=== PATIENT | female | born 1940 ===

== ENCOUNTER → 2021-03-28 09:20 | Outpatient (BNVA) | payer OTHER, SELFPAY | PROVIDERS: Visit Provider Nurse Practitioner Family | DX: R25.1 Tremor, unspecified (principal); F09 Unspecified mental disorder due to known physiological condition; Z55.0 Illiteracy and low-level literacy | CPT/HCPCS: 99212 ==

== ENCOUNTER → 2021-05-30 08:40 | Outpatient (BNVA) | payer OTHER, SELFPAY | PROVIDERS: PCP Internal Medicine; Visit Provider Nurse Practitioner Family | DX: R25.1 Tremor, unspecified (principal); F09 Unspecified mental disorder due to known physiological condition; H54.40 Blindness, one eye, unspecified eye | CPT/HCPCS: 99212 ==

== ENCOUNTER → 2022-03-28 09:26 | Outpatient (BNVA) | payer OTHER, SELFPAY | PROVIDERS: PCP Internal Medicine; Visit Provider Nurse Practitioner Family | DX: R25.1 Tremor, unspecified (principal); F41.9 Anxiety disorder, unspecified; G47.9 Sleep disorder, unspecified | CPT/HCPCS: 99212 ==

== ENCOUNTER → 2022-06-25 09:30 | Outpatient (BNVA) | payer OTHER, SELFPAY | PROVIDERS: PCP Internal Medicine; Visit Provider Nurse Practitioner Family | DX: G47.9 Sleep disorder, unspecified (principal); R25.1 Tremor, unspecified; F09 Unspecified mental disorder due to known physiological condition | CPT/HCPCS: 99212 ==

== ENCOUNTER 2022-12-25 09:17 | Outpatient (AMB) | payer OTHER, SELFPAY ==
--- NOTE | 2022-12-25 09:18 | MHC.OFFVIS ---
Intake Vital Signs 12/25/22 09:19 Height 4 ft 8 in Weight 89 lb 2 oz BMI 20.0 BP 122/74 Blood Pressure Location Rt brachial Position Sitting Intake Visit Reasons: 6m follow up-LVM Intake Note: Patient presents for 6 month follow up. Patient states no issues or concerns today. Allergies No Known Allergies Allergy (Verified 12/25/22 09:20) HPI HPI Comments History of Present Illness Details 82-yr-old female presents for f/u visit. Pt denies any significant interval medical changes. Pt and dtr report she is doing better overall. She is sleeping better on Mirtazapine and Trazodone. She is eating a bit better, but has had a small weight loss since the last visit- 5 lbs over 6 months. Tremor is stable PFSH Surgical History H/O colonoscopy History of tubal ligation Family History Father CVA (cerebral vascular accident) Myocardial infarction Mother Glaucoma Sister High blood pressure Dementia Myocardial infarction Brother DJD (degenerative joint disease) Social History Alcohol intake: never Patient Tobacco Use Status: Never used Tobacco Review of Systems Const All systems reviewed & are unremarkable except as noted in HPI and below Physical Exam Vital Signs: Last Vital Signs BP 122/74 12/25/22 09:19 BMI result Body Mass Index 20.0 Const General: cooperative and no acute distress HEENT Head: Yes normocephalic Resp Effort & Inspection: normal respiratory effort and able to speak in complete sentences Neuro Other: A&O, responding appropriately. General: gait normal Cognition (Neuro): normal cognition Motor exam (neuro): 5/5 motor strength present throughout Psych Appearance: grossly normal Mental Status: mental status grossly normal Speech and movement: Clear speech present Affect: normal affect Attitude: cooperative Thought process: Normal thought process present Assessment & Plan Assessment & Plan (1) Sleep difficulties: Code(s): G47.9 - Sleep disorder, unspecified (2) Tremor: Comment: asymmetric BUE tremor. ? central/CV process, ? early PD. Code(s): R25.1 - Tremor, unspecified Plan Continue Mirtazapine 7.5mg qhs May continue Trazodone 50mg qhs. Continue to optimize physical activity and cognitively stimulating activities. Monitor tremor. Monitor cognition- do MMSE in f/u Try to increase caloric intake- add some high calorie foods. f/u in 6 months or sooner prn Coding Level of Care Code Est Pt Level 4 (23509) Diagnoses Sleep difficulties G47.9 Tremor R25.1
[2022-12-25 09:19] VITALS: BP 122/74
== END 2022-12-25 09:57 | disposition home or self-care (01) ==
PROVIDERS: Visit Provider Nurse Practitioner Family
DX: G47.9 Sleep disorder, unspecified (principal); R25.1 Tremor, unspecified
CPT/HCPCS: 99214

== ENCOUNTER → 2022-12-25 09:17 | Outpatient (BNVA) | payer OTHER, SELFPAY | PROVIDERS: Visit Provider Nurse Practitioner Family | DX: G47.9 Sleep disorder, unspecified (principal); R25.1 Tremor, unspecified | CPT/HCPCS: 99212 ==

== ENCOUNTER 2023-06-24 08:35 | Outpatient (AMB) | payer OTHER, SELFPAY ==
--- NOTE | 2023-06-24 08:42 | MHC.OFFVIS ---
Vital Signs 06/24/23 08:50 Height 4 ft 8 in Weight 90 lb BMI 20.2 BP 122/70 Blood Pressure Location Lt brachial Position Sitting Pulse 54 Pulse Source Pulse Oximeter Pulse Oximetry (%) 100 Oxygen Delivery Method Room Air Intake Visit Reasons: 6 mo f/u-LVM Intake Note: Patient presents for 6 months f/u. Allergies No Known Allergies Allergy (Verified 06/24/23 08:46) Medication List - Last Reconciled 06/24/23 by ROSALINDA Nevarez amlodipine (Norvasc) 2.5 mg PO DAILY aspirin (Adult Low Dose Aspirin) 81 mg PO DAILY atorvastatin 20 mg PO DAILY denosumab (Prolia) 60 mg subcut [id number] dorzolamide 2% 1 drp ophthalmic (eye) TID ferrous sulfate 325 mg PO DAILY lisinopril 20 mg PO DAILY metformin 500 mg PO DAILY mirtazapine 7.5 mg PO BEDTIME 30 days omeprazole 20 mg PO DAILY tramadol 50 mg PO DAILY trazodone 50 mg PO BEDTIME warfarin 5 mg PO DAILY HPI Comments Details: 82-yr-old female presents for f/u visit, accompanied by her dtr, Dora. Pt denies any significant interval medical changes. Pt states she is eating better. Pt is sleeping well. Dtr is helping more. Pt does cook simple foods. Dtr has asked her to not cook more complicated foods, such as frying. As she was burning foods. Pt is repeating herself. Pt is not wandering. Pt's dtr notes that pt does not have the same filter she used to. Can become frustrated. Can be anxious at times. Dtr tries strategies to relax her or to take her out. PFSH Surgical History H/O colonoscopy History of tubal ligation Family History Father CVA (cerebral vascular accident) Myocardial infarction Mother Glaucoma Sister High blood pressure Dementia Myocardial infarction Brother DJD (degenerative joint disease) Social History Alcohol intake: never Patient Tobacco Use Status: Never used Tobacco Physical Exam Vital Signs: Last Vital Signs Pulse 54 06/24/23 08:50 BP 122/70 04/23/24 08:50 Pulse Ox 100 06/24/23 08:50 Oxygen Delivery Method Room Air 06/24/23 08:50 BMI result Body Mass Index 20.2 Const General: cooperative and no acute distress Resp Effort & Inspection: normal respiratory effort and able to speak in complete sentences Neuro Other: A&O Pleasant affect Modified MMSE d/t Malian speaking and unable to read/write or do math: Friday, , June,, [facility], (location)[facility], 1st. Unable to state that we are in a clinic. [employer] Libro- 3/3 Items- able to identify 2 items correctly. [employer] Libro- 3/3 3- step command- intact. General: moves all extremities Cranial nerves: Yes CN's II-XII intact bilaterally Cognition (Neuro): normal cognition Gait exam (Neuro): Assisted gait required (cane) Psych Appearance: grossly normal Mental Status: mental status grossly normal Speech and movement: Normal speech and movement present Affect: normal affect Attitude: cooperative Assessment & Plan Assessment & Plan (1) Cognitive dysfunction: Comment: STM difficulties and repeating herself. sister passed from AD around 80 yo. Code(s): F09 - Unspecified mental disorder due to known physiological condition Category: Medical (2) Literacy level of illiterate: Comment: Malian speaking- never learned how to read or write in Malian. Code(s): Z55.0 - Illiteracy and low-level literacy Category: Social Hx (3) Tremor: Comment: asymmetric BUE tremor. ? central/CV process, ? early PD. Code(s): R25.1 - Tremor, unspecified Category: Medical (4) Sleep difficulties: Code(s): G47.9 - Sleep disorder, unspecified Category: Medical Plan Start Memantine ER 7mg qd for neuroprotection. Continue Mirtazapine 7.5mg qhs May continue Trazodone 50mg qhs. Continue optimizing diet intake. Continue to optimize physical activity and cognitively stimulating activities. Monitor tremor. f/u in 6 months or sooner prn Medications: New memantine 7 mg PO DAILY 30 ea 6RF 30 days Coding Level of Care Code Est Pt Level 4 (63963) Diagnoses Cognitive dysfunction F09 Literacy level of illiterate Z55.0 Tremor R25.1 Sleep difficulties G47.9
[2023-06-24 08:50] VITALS: BP 122/70; PULSE 54; O2SAT 100; BMI 20.2
== END 2023-06-24 09:24 | disposition home or self-care (01) ==
PROVIDERS: PCP Internal Medicine; Visit Provider Nurse Practitioner Family
DX: R41.89 Other symptoms and signs involving cognitive functions and awareness (principal); Z55.0 Illiteracy and low-level literacy; R25.1 Tremor, unspecified; G47.9 Sleep disorder, unspecified
CPT/HCPCS: 99214

== ENCOUNTER → 2023-06-24 08:35 | Outpatient (BNVA) | payer OTHER, SELFPAY | PROVIDERS: PCP Internal Medicine; Visit Provider Nurse Practitioner Family | DX: F09 Unspecified mental disorder due to known physiological condition (principal); R25.1 Tremor, unspecified; G47.9 Sleep disorder, unspecified; Z55.0 Illiteracy and low-level literacy | CPT/HCPCS: 99212 ==

== ENCOUNTER 2023-12-29 08:59 | Outpatient (AMB) | payer OTHER, SELFPAY ==
--- NOTE | 2023-12-29 09:08 | A.OFFVIS_ITS ---
Vital Signs 12/29/23 09:08 Height 4 ft 8 in Intake Visit Reasons: 6 month F/U Allergies No Known Allergies Allergy (Verified 12/29/23 09:10) Medication List - Last Reconciled 01/05/24 by ROSALINDA Nevarez amlodipine (Norvasc) 2.5 mg PO DAILY aspirin (Adult Low Dose Aspirin) 81 mg PO DAILY atorvastatin 20 mg PO DAILY denosumab (Prolia) 60 mg subcut [id number] dorzolamide 2% 1 drp ophthalmic (eye) TID ferrous sulfate 325 mg PO DAILY lisinopril 20 mg PO DAILY memantine 7 mg PO DAILY 30 days metformin 500 mg PO DAILY mirtazapine 7.5 mg PO BEDTIME 30 days omeprazole 20 mg PO DAILY tramadol 50 mg PO DAILY trazodone 50 mg PO BEDTIME warfarin 5 mg PO DAILY HPI Comments Details: 82-yr-old female presents for f/u visit, accompanied by her dtr, Dora. Pt denies any significant interval medical changes. Dtr states pt's cognition is stable. Dtr continues to assist pt. Pt states she is eating ok- always has had a small appetite. Pt is sleeping well. Pt does repeat herself. Pt is not wandering. Can be anxious or frustrated at times, and Dtr is able to relax her or to take her out. [facility] Surgical History H/O colonoscopy History of tubal ligation Family History Father CVA (cerebral vascular accident) Myocardial infarction Mother Glaucoma Sister High blood pressure Dementia Myocardial infarction Brother DJD (degenerative joint disease) Social History Alcohol intake: never Patient Tobacco Use Status: Never used Tobacco Physical Exam Const General: cooperative and no acute distress Resp Effort & Inspection: normal respiratory effort and able to speak in complete sentences Neuro Other: A&O w/ STM lapses. Pleasant affect General: moves all extremities Cranial nerves: Yes CN's II-XII intact bilaterally Cognition (Neuro): normal cognition Gait exam (Neuro): Assisted gait required (cane) Psych Appearance: grossly normal Mental Status: mental status grossly normal Speech and movement: Normal speech and movement present Affect: normal affect Attitude: cooperative Assessment & Plan Assessment & Plan (1) Cognitive dysfunction: Comment: STM difficulties and repeating herself. sister passed from AD around 80 yo. Code(s): F09 - Unspecified mental disorder due to known physiological condition Category: Medical (2) Literacy level of illiterate: Comment: Dominican speaking- never learned how to read or write in Dominican. Code(s): Z55.0 - Illiteracy and low-level literacy Category: Social Hx (3) Tremor: Comment: asymmetric BUE tremor. ? central/CV process, ? early PD. Code(s): R25.1 - Tremor, unspecified Category: Medical (4) Sleep difficulties: Code(s): G47.9 - Sleep disorder, unspecified Category: Medical Plan ContinueMemantine ER 7mg qd for neuroprotection. Continue Mirtazapine 7.5mg qhs May continue Trazodone 50mg qhs. Continue optimizing diet intake. Continue to optimize physical activity and cognitively stimulating activities. Monitor tremor. f/u in 6 months or sooner prn Coding Level of Care Code Est Pt Level 4 (32673) Diagnoses Cognitive dysfunction F09 Literacy level of illiterate Z55.0 Tremor R25.1 Sleep difficulties G47.9
== END 2023-12-29 11:18 | disposition home or self-care (01) ==
PROVIDERS: PCP Internal Medicine; Visit Provider Nurse Practitioner Family
DX: R41.89 Other symptoms and signs involving cognitive functions and awareness (principal); R25.1 Tremor, unspecified; G47.9 Sleep disorder, unspecified; Z55.0 Illiteracy and low-level literacy
CPT/HCPCS: 99214

== ENCOUNTER → 2023-12-29 08:59 | Outpatient (BNVA) | payer OTHER, SELFPAY | PROVIDERS: PCP Internal Medicine; Visit Provider Nurse Practitioner Family | DX: F09 Unspecified mental disorder due to known physiological condition (principal); R41.89 Other symptoms and signs involving cognitive functions and awareness; R25.1 Tremor, unspecified; G47.9 Sleep disorder, unspecified; Z55.0 Illiteracy and low-level literacy | CPT/HCPCS: 99212 ==

== ENCOUNTER 2024-06-22 08:46 | Outpatient (AMB) | payer OTHER, SELFPAY ==
[2024-06-22 08:51] VITALS: PULSE 61; O2SAT 100; BMI 18.8
--- NOTE | 2024-06-22 08:51 | A.OFFVIS_ITS ---
Vital Signs 06/22/24 08:51 Height 4 ft 8 in Weight 84 lb BMI 18.8 Pulse 61 Pulse Source Pulse Oximeter Pulse Oximetry (%) 100 Oxygen Delivery Method Room Air Intake Visit Reasons: Follow up Intake Note: Patient presents follow up Cognitive dysfunction/tremors. Irrigation Engineer Required: Yes Irrigation Engineer Services: Irrigation Engineer Offered & Declined Irrigation Engineer Name: Daughter Accompanied by: Daughter Allergies No Known Allergies Allergy (Verified 06/22/24 08:54) Medication List - Last Reconciled 06/22/24 by ROSALINDA Nevarez amlodipine (Norvasc) 2.5 mg PO DAILY aspirin (Adult Low Dose Aspirin) 81 mg PO DAILY atorvastatin 20 mg PO DAILY denosumab (Prolia) 60 mg subcut [id number] dorzolamide 2% 1 drp ophthalmic (eye) TID ferrous sulfate 325 mg PO DAILY lisinopril 20 mg PO DAILY memantine 7 mg PO DAILY 30 days metformin 500 mg PO DAILY mirtazapine 7.5 mg PO BEDTIME 30 days omeprazole 20 mg PO DAILY tramadol 50 mg PO DAILY trazodone 50 mg PO BEDTIME warfarin 5 mg PO DAILY HPI Comments Details: 83-yr-old female presents for f/u visit, accompanied by her dtr, Dora. Pt denies any significant interval medical changes, other than a recent cough/cold s/s. June 2024, BMP- WNL (dtr shared results via portal) Dtr and patient states pt's cognition is worsening some. However, if she forgets something, she is prone to recall it afterwards. Pt continues to live at home with her , however he spends most of his day in his office- so does not help much. Dtr continues to assist pt. Now dtr needs to cook for pateint as she was forgetting steps/ingredients. Pt states she is eating ok, dtr feels she is eating better since starting mirtazepine- though always has had a small appetite. Pt is sleeping well. Pt does repeat herself. Pt does not wander or engage in unsafe behaviors. Can be angry at times with her - but in the past was too patient with her . Dtr states pt does not recall things happening recently w/ - but becomes more upset regarding historical actions/events. Hand tremor is better since dtr gave pt small balls to exercise her hands. These also help her when she is anxious. [facility] Surgical History H/O colonoscopy History of tubal ligation Family History Father CVA (cerebral vascular accident) Myocardial infarction Mother Glaucoma Sister High blood pressure Dementia Myocardial infarction Brother DJD (degenerative joint disease) Social History Alcohol intake: never Patient Tobacco Use Status: Never used Tobacco Physical Exam Vital Signs: Last Vital Signs Pulse 61 06/22/24 08:51 Pulse Ox 100 06/22/24 08:51 Oxygen Delivery Method Room Air 06/22/24 08:51 BMI result Body Mass Index 18.8 Const General: cooperative and no acute distress Resp Effort & Inspection: normal respiratory effort and able to speak in complete sentences Neuro Other: A&O w/ STM lapses. Responding appropriately. Pleasant affect No visible UE tremor. General: moves all extremities Cranial nerves: Yes CN's II-XII intact bilaterally Cognition (Neuro): normal cognition Gait exam (Neuro): Assisted gait required (cane) Psych Appearance: grossly normal Speech and movement: Clear speech present Affect: normal affect Attitude: cooperative Assessment & Plan Assessment & Plan (1) Cognitive dysfunction: Comment: STM difficulties and repeating herself. sister passed from AD around 80 yo. Code(s): F09 - Unspecified mental disorder due to known physiological condition Category: Medical (2) Literacy level of illiterate: Comment: Swedish speaking- never learned how to read or write in Swedish. Code(s): Z55.0 - Illiteracy and low-level literacy Category: Social Hx (3) Tremor: Comment: asymmetric BUE tremor. ? central/CV process, ? early PD. Code(s): R25.1 - Tremor, unspecified Category: Medical (4) Sleep difficulties: Code(s): G47.9 - Sleep disorder, unspecified Category: Medical Plan Increase Memantine ER from 7mg qd to 14mg qd x's 30 days, if well-tolertaed will increase to 21mg qd x's 30 days and then to 28mg qd- for neuroprotection. Reviewed possible s/e's- dtr to call w/ any untoward effects. Continue Mirtazapine 7.5mg qhs May continue Trazodone 50mg qhs. Continue optimizing diet intake. Continue to optimize physical activity and cognitively stimulating activities. Encouraged to try doing puzzles. Monitor tremor. Continue firm and soft ball hand exercises, as they have been helpful. f/u in 6 months or sooner prn Medications: New memantine then stop and increase to 21mg qd 14 mg PO DAILY 30 days 30 ea 0RF Refilled mirtazapine 7.5 mg PO BEDTIME 30 days 30 tabs 6RF Discontinued memantine Discontinued Reason: Doctor's Order 7 mg PO DAILY 30 days 30 ea 6RF Coding Level of Care Code Est Pt Level 4 (64244) Diagnoses Cognitive dysfunction F09 Literacy level of illiterate Z55.0 Tremor R25.1 Sleep difficulties G47.9
--- OUTSIDE RECORDS SUMMARY | 2024-06-22 09:09 | XMS_ITS | Clinical Summary ---
Author Organization [facility] [address] [place] [address] [place] [phone] Phone Care Team Providers Care Electrical Design Technician Name Role Phone Alessandro Marin MD Primary Care Provider [phone] Allergies No known active allergies Medications latanoprost (XALATAN) 0.005 % ophthalmic solution Active memantine (NAMENDA XR) 7 mg extended release capsule Take 1 capsule (7 mg total) by mouth 1 (one) time each day. For 30 days. Active timolol (TIMOPTIC) 0.5 % ophthalmic solution Administer 1 drop into both eyes 2 (two) times a day. Active traZODone (DESYREL) 50 mg tablet TAKE 1 TABLET NIGHTLY NEEDED FOR SLEEP Active denosumab (Prolia) 60 mg/mL syringe syringe Inject 1 mL (60 mg total) under the skin every 6 (six) months. Active prednisoLONE acetate (PRED FORTE) 1 % ophthalmic suspension 1 drop 3 (three) times a day. Active FREESTYLE LANCETS MISC Use for finger stick once a day. Active dorzolamide HCl (DORZOLAMIDE OPHT) apply to the eye. Active mirtazapine (REMERON) 7.5 mg tablet Take 1 Tablet by mouth at bedtime. Active metFORMIN (GLUCOPHAGE) 500 mg tabletIndications :Type 2 diabetes mellitus with diabetic nephropathy (CMS/HCC V24, CMS/HCC V28) TAKE 1 TABLET BY MOUTH EVERY DAY 90 tablet 1 025 Active denosumab (PROLIA) 60 mg/mL syringe syringe Inject 1 mL (60 mg total) under the skin 1 (one) time for 1 dose. 1 mL 025 Active warfarin (COUMADIN) 5 mg tablet TAKE 1/2 -1 TABS BY MOUTH DAILY DIRECTED AT SAME TIME PER DAY. DONT CHANGE DIETARY HABITS. MAY CAUSE HEAVY BLEEDING 90 tablet 1 025 Active lisinopriL (PRINIVIL,ZESTRIL ) 5 mg tablet Take 1 tablet (5 mg total) by mouth 1 (one) time each day. 90 each 1 025 2024 Active traMADoL (ULTRAM) 50 mg tablet Take 1 tablet by mouth daily as needed for pain 28 tablet 025 Active omeprazole (PriLOSEC) [address] capsule TAKE 1 CAPSULE BY MOUTH EVERY DAY 90 capsule 1 025 Active ferrous sulfate 325 mg (65 mg elemental iron) tabletIndications :Essential (primary) hypertension TAKE 1 TABLET BY MOUTH EVERY DAY 90 tablet 1 025 Active atorvastatin (LIPITOR) 20 mg tabletIndications :Mixed hyperlipidemia TAKE 1 TABLET BY MOUTH EVERY DAY 90 tablet 1 025 Active ferrous sulfate 325 mg (65 mg elemental iron) tablet Take 1 tablet (325 mg total) by mouth 1 (one) time each day. 024 2024 Discontinued omeprazole (PriLOSEC) [address] capsule Take 1 capsule (20 mg total) by mouth 1 (one) time each day. 024 2024 Discontinued atorvastatin (LIPITOR) 20 mg tablet Take 1 tablet (20 mg total) by mouth 1 (one) time each day. 018 2024 Discontinued traMADoL (ULTRAM) 50 mg tablet Take 1 tablet by mouth daily as needed for pain 20 tablet 025 2024 Discontinued(R eorder) clotrimazole (LOTRIMIN) 1 % cream Apply topically 2 (two) times a day. To nails 30 g 3 025 2024 Hospital, Clinic, or Other Facility Administered Medication Ordered Dose Route Frequency Start Date End Date Status denosumab (PROLIA) syringe 60 mgIndications:Age-related osteoporosis without current pathological fracture 60 mg subQ Once 06/08/2024 06/18/2024 Ended Active Problems Problem Noted Date Diagnosed Date Recurrent deep vein thrombosis ([facility] V24, [facility] V28) 02/06/2024 medical terminologist (current) use of anticoagulants 2023 COVID 02/08/2022 Adhesive capsulitis of right shoulder 01/29/2021 Pes anserinus bursitis of both knees 01/29/2021 Tendinitis of right rotator cuff 04/20/2020 Chronic kidney disease due to hypertension 07/01 Gastroesophageal reflux disease 05/22/2019 Cyst of right ovary 12/29/2017 Overview (12/29/2023): Subentimeter and unchanged from 2013. MRI and repeat US in 12/2018 unchanged Last Assessment & Plan: Reviewed findings and pt reassured. Will schedule repeat US in one year. Vaginal erosion 12/29/2017 Overview (12/29/2023): Last Assessment & Plan: I reviewed findings with Livia and her . I explained that her vaginal erosion could be related to friction on her clothing with prolapse when she stands, but on exam while standing this was not the case. I am somewhat suspicious for a precancerous or cancerous lesion given that this lesion was present with pessary in place, which is why it was initially removed, but did not resolve with 2 weeks with pessary out, followed by two weeks with pessary out and nightly estrogen use. I recommended that we perform colposcopy and vaginoscopy with vaginal and cervical biopsies, as well as ECC to ensure not originating within the cervix. I explained we cannot replace the pessary until we get this resolved. I did discuss that if the biopsy is negative, it may be best to consider colpocleisis as she is not planning on being sexually active any longer and if the pessary is the cause of her erosion, this is no longer an option. I explained that this would not be at my discretion given I do not perform this procedure, but I would start a referral to Dr. Solitario to see if he thinks this is warranted and would be willing to do so with her comorbidities. I explained a hysterectomy would be a much more involved surgery with higher risks for her based on her medical history. They are willing to wait to hear what Dr. Solitario has to say. In the meantime, they consented to vulvoscopy/colposcopy/biopsies today. See procedure note below. Following the procedure, she will return to daily use of vaginal estrogen to aid with healing of vaginal mucosa and erosion, if that is what it turns out to be. I am aware that she has a history of recurrent DVT, but given very low if any clinically significant systemic absorption of topical vaginal estrogen and the fact livan patient is on Coumadin, this is extremely unlikely to contribute to recurrence, but could significantly benefit her in terms of healing to prepare her for whatever intervention is next, either replacement of pessary vs surgical management. She and her understood and agreed. I spoke with both of them in Estonian and he spoke with me in Armenian as well and clearly interpretted to her. Pelvic pain 11/13/2017 Overview (01/22/2024): Last Assessment & Plan: Will order pelvic US given prolapse and pain to ensure no Projects Manager pathology. None noted today. She also agrees to follow up with PCP. Hyperlipidemia 08/27/2016 Recurrent deep vein thrombos is (DVT) ([facility] V24, [facility] V28) 03/14/2016 Microalbuminuria 12/13/2015 Illiteracy 08/12/2013 Anxiety 04/14/2013 Cystocele with uterine descensus 11/12/2012 Overview (12/29/2023): Last Assessment & Plan: Recommended she not have replacement of pessary at this time due to vaginal abrasions and difficulty keeping in place. I recommended she return in 2 weeks to ensure mucosa is healing. If not, could try topical estrogen. If so, can refit for pessary, perhaps different kind. Uterine prolapse 11/12/2012 Anemia 07/29/2012 Back pain 07/29/2012 Diabetes mellitus with renal manifestations, controlled ([facility] V24, [facility] V28) 07/29/2012 Osteoarthritis 07/29/2012 Overview (12/29/2023): Bilateral knees, right AC joint Followed by Dr. Rodriguez at [facility] CKD (chronic kidney disease) stage 3, GFR 30-59 ml/min ([facility] V24, [facility] V28) 07/29/2012 Glaucoma 06/17/2012 Overview (12/29/2023): The patient follow with outside eye doctor HTN (hypertension) 06/17/2012 Osteoporosis 06/17/2012 Encounters Date Type Department Care Team Description 06/18/2024 12:00 PM EDT Clinical Support Endocrinology - [address] [phone] 06/07/2024 Telephone Endocrinology - [address] [phone] Naya Sigala PA 05/26/2024 10:00 AM EDT Anticoagulation - Warfarin Visit Coumadin Clinic - [address] [phone] Recurrent deep vein thrombosis ([facility] V24, [facility] V28) (Primary Dx); residential (current) use of anticoagulants 05/12/2024 9:00 AM EDT Consult Orthopedic Surgery - [address] [phone] Hiren Michel DPM Dermatophytosis of nail (Primary Dx); Controlled type 2 diabetes mellitus with microalbuminuria, without long-term current use of insulin ([facility] V24, [facility] V28); Pain in toe of right foot; Pain in toe of left foot; Corns and callosities; Hammer toe of left foot; Acquired hammer toe of right foot; Type II diabetes mellitus with peripheral circulatory disorder ([facility] V24, [facility] V28); Diabetic mononeuropathy simplex ([facility] V24, [facility] V28); Metatarsalgia of both feet 05/06/2024 9:30 AM EST Office Visit Internal Medicine - [address] [phone] Anthony Andrea PA Primary hypertension (Primary Dx) 04/28/2024 2:10 PM EST Anticoagulation - Warfarin Visit Coumadin [address] [phone] Recurrent deep vein thrombosis (CMS/HCC V24, CMS/HCC V28) (Primary Dx); residential (current) use of anticoagulants 04/07/2024 8:10 AM EST Anticoagulation - Warfarin Visit [address] [phone] Recurrent deep vein thrombosis (CMS/HCC V24, CMS/HCC V28) (Primary Dx); residential (current) use of anticoagulants 03/24/2024 8:30 AM EST [facility] [address] [phone] Recurrent deep vein thrombosis (CMS/HCC V24, CMS/HCC V28) (Primary Dx); medical terminologist (current) use of anticoagulants from Last 3 Months Immunizations Name Administration Dates Next Due Influenza trivalent, 0.5mL ( Fluad) 65yo and older 11/21/2022,01/10/2021,12/03/2019,01/27,11/19/2017,12/05/2016,12/13/2015 Influenza trivalent, 0.5mL, preservative free (Fluarix; FluLaval; Fluzone) ages 6mo and older (Afluria) 3 years and older 12/14/2013,01/08/2013 Influenza, Unspecified 01/11/2022 Pneumococcal conjugate 13 va lent (Prevnar 13, PCV13) 2mo and older 03/14/2016 Pneumococcal polysaccharide 23 valent (Pneumovax 23) 2yo and older 04/15/2013 Pneumococcal, Unspecified 04/15/2013 Td Tetanus diptheria (Tdvax) 7yo and older 04/14/2013 Tdap Tetanus diptheria acell ular pertussis (Boostrix; Adacel) 7yo and older 03/18/2024 Zoster Live 03/07/2011 Surgical History Surgery Date Site/Laterality Comments TUBAL LIGATION PROCEDURE: HISTORICAL TUBAL LIGATION OTHER SURGICAL HISTORY PROCEDURE: HISTORICAL BENIGN LESION (REMOVAL OF); COMMENT: lipoma of the L breast ESOPHAGOGASTRODUODENOSCOPY 01/18/2013 PROCEDURE: DE EGD TRANSORAL BIOPSY SINGLE/MULTIPLE; COMMENT: erosive antral gastritis, bx to r/o H.pylori - mild rxtive gastritis,neg H.pylori COLONOSCOPY 01/18/2013 PROCEDURE: DE COLONOSCOPY STOMA DX INCLUDING COLLJ SPEC SPX; COMMENT: normal w/R sided tics BREAST BIOPSY 1980s Left PROCEDURE: BX BREAST; PERC NEEDLE CORE W/IMAG GUID; COMMENT: b9 OTHER SURGICAL HISTORY Bilateral PROCEDURE: INCISION OF EYE FOR GLAUCOMA; COMMENT: Lost vision in the right eye Medical History Medical History Date Comments Uterine prolapse 11/12/2012 DX:Uterine prol apse Osteoporosis 06/17/2012 DX:Osteoporosis Osteoarthritis 07/29/2012 DX:Osteoarthriti s Illiteracy 08/12/2013 DX:Illiteracy HTN (hypertension) 06/17/2012 DX:HTN (hyper tension) History of DVT (deep vein thrombosis) 06/17/2012 DX:History of DVT (deep vein thrombosis); COMMENT: Left leg on January2011. Negative USG on 04/2012 and coumadin was d/c. Glaucoma 06/17/2012 DX:Glaucoma; COM MENT: The patient follow with outside eye doctor Diabetes mellitus with renal manifestations, controlled ([facility] V24, [facility] V28) 07/29/2012 DX:Diabetes mellitus with re nal manifestations, controlled ([facility]) Cystocele 11/12/2012 DX:Cystocele CKD (chronic kidney disease) stage 3, GFR 30-59 ml/min ([facility] V24, [facility] V28) 07/29/2012 DX:CKD (chronic kidney disea se) stage 3, GFR 30-59 ml/min ([facility]) Back pain 07/29/2012 DX:Back pain Anxiety 04/14/2013 DX:Anxiety Anemia 07/29/2012 DX:Anemia Microalbuminuria 12/13/2015 DX:Microalbumin uria Anticoagulant long-term use 03/14/2016 DX:A nticoagulant long-term use Recurrent deep vein thrombos is (DVT) ([facility] V24, [facility] V28) 03/14/2016 DX:Recurrent deep vein thro mbosis (DVT) ([facility]) Hyperlipidemia 08/27/2016 DX:Hyperlipidemi a Family History Medical History Relation Name Comments Alzheimer's disease Brother 1 7 total only 2 alive now one had alzheimedrs Coronary artery disease Brother 1 7 total only 2 alive now Diabetes Brother 1 7 total only 2 a live now Glaucoma Brother 1 7 total only 2 a live now Heart attack Brother 1 7 total only 2 a live now all brothers had MIs Coronary artery disease Brother 2 Diabetes Brother 2 Arthritis Daughter Asthma Daughter Depression Daughter Diabetes Daughter Hypertension Daughter Other: Other Daughter tourettes syndr ome Coronary artery disease Father Glaucoma Father Diabetes Mother Breast cancer Other niece 40 Alzheimer's disease Sister 1 Coronary artery disease Sister 1 Diabetes Sister 1 Coronary artery disease Sister 2 Coronary artery disease Son 1 Hypertension Son 2 Relation Name Status Comments Brother 1 7 total only 2 alive now Alive DJD Brother 2 Daughter Father CVA, [place] Mother Other niece 40 Alive Sister 1 dementia Sister 2 AR Son 1 Son 2 Alive Social History Tobacco Use Types Packs/Day Years Used Date Smoking Tobacco: Never Smokeless Tobacco: Never Tobacco Cessation:Counseling Given: Not Answered Alcohol Use Standard Drinks/Week Comments No 0 (1 standard drink = 0.6 oz pur e alcohol) Comments No Sex and Gender Information Value Date Recorded Sex Assigned at Not on file Legal Sex Female 8:22 AM EST Gender Identity Not on file Sexual Orientation Not on file Obstetrics History Last Filed Vital Signs Vital Sign Reading Time Taken Comments Blood Pressure 132/72 06/18/2024 12:15 PM EDT Pulse 83 06/18/2024 12:15 PM EDT Temperature 36.9 ??C (98.4 ??F) 06/18/2024 12:15 PM E DT Respiratory Rate 16 05/06/2024 9:20 AM EST Oxygen Saturation 99% 03/10/2024 9:39 AM EST Inhaled Oxygen Concentration - - Weight 39.3 kg (86 lb 9.6 oz) 05/06/2024 9:20 AM EST Height 142.2 cm (4' 8 ) 03/18/2024 8:30 AM EST Body Mass Index 19.42 03/18/2024 8:30 AM EST Plan of Treatment Upcoming Encounters Date Type Department Care Team (Late st Contact Info) Description 06/23/2024 8:10 AM EDT Anticoagulation - Warfarin Visit Coumadin [address] [phone] 08/12/2024 8:30 AM EDT Office Visit Orthopedic Surgery - [place] [address] [facility] [address] [place] [phone] Hiren Michel, DPKarthik [address] [address] 09/07/2024 8:45 AM EDT Office Visit Internal Medicine - [facility] [address] [place] [phone] Anthony Andrea PA [address] [place] [address] 12/24/2024 9:00 AM EDT Clinical Support Endocrinology [address] [phone] Health Maintenance Due Date Last Done Comments RSV Immunization Adult Patients (1 - 1-dose 75+ series) 07/11/2014 Zoster Vaccines (3 of 3) 03/04/2022 01/07/2022, 07/2011 Medicare Annual Wellness Visit 01/11/2024 01/10/2023 Diabetes: Blood Sugar Control Test (HGBA1C) 09/16/2024 03/19/2024, 12/17/2023, 12/17/2023 Diabetes: Annual Retina Eye Exam 12/10/2024 12/11/2023 Depression Screening 03/18/2025 03/18/2024 Diabetes: Annual Foot Exam 03/18/2025 03/18/2024 Falls Risk Assessment 03/18/2025 03/18/2024 Social Influencers of Health Screening 03/18/2025 03/18/2024 Diabetes: Annual Urine Albumin-Creatinine Ratio (uACR) 03/19/2025 03/19/2024, 05/22/2023 Diabetes: Annual GFR (Glomerular Filtration Rate) 06/11/2025 06/11/2024, 05/06/2024, 03/19/2024, Additional history exists Hypertension/CHF/CAD Annual BMP Blood Test 06/11/2025 06/11/2024, 05/06/2024, 03/19/2024, Additional history exists Cholesterol Screening (Lipid Panel) 12/16/2028 12/17/2023, 12/17/2023 Osteoporosis Screening (Bone Density Screening) 12/24/2033 12/25/2023, 12/25/2023, 12/25/2021, Additional history exists DTaP,Tdap,and Td Vaccines (5 - Td or Tdap) 03/18/2034 03/18/2024, 04/14/2013, 07/16/2001, Additional history exists Pneumococcal Vaccine: 50+ Years Completed 03/14/2016, 04/15/2013, 04/15/2013, Additional history exists Influenza Vaccine Completed 12/03/2023, , 01/11/2022, Additional history exists COVID-19 Vaccine Discontinued HIB Vaccines Aged Out No longer eligi ble based on patient's age to complete this topic HPV Vaccines Aged Out No longer eligi ble based on patient's age to complete this topic Hepatitis A Vaccines Aged Out No long er eligible based on patient's age to complete this topic Hepatitis B Vaccines Aged Out No long er eligible based on patient's age to complete this topic IPV Vaccines Aged Out No longer eligi ble based on patient's age to complete this topic MMR Vaccines Aged Out No longer eligi ble based on patient's age to complete this topic Meningococcal ACWY Vaccine Aged Out N o longer eligible based on patient's age to complete this topic Meningococcal B Vaccine Aged Out No l onger eligible based on patient's age to complete this topic RSV Immunization Patients Under 20 months Aged Out No longer eligible based on patient's age to complete this topic Varicella Vaccines Aged Out No longer eligible based on patient's age to complete this topic Procedures Procedure Name Priority Date/Time Associated Diagnosis Comments PROTHROMBIN TIME WITH INR Routine 06/11/2024 9:17 AM EDT Recurrent deep vein thrombosis ([facility] V24, [facility] V28) BASIC METABOLIC PANEL Routine 06/11/2024 9:17 AM EDT Age-related osteoporosis without current pathological fracture VITAMIN D 25 HYDROXY Routine 06/11/2024 9:17 AM EDT Age-related osteoporosis without current pathological fracture POC PROTIME INR BLOOD Routine 05/26/2024 Recurrent deep vein thrombosis (CMS/HCC V24, CMS/HCC V28) medical terminologist (current) use of anticoagulants EXTERNAL XRAY REPORT 05/18/2024 PROTHROMBIN TIME WITH INR Routine 05/06/2024 10:02 AM EST Recurrent deep vein thrombosis (CMS/HCC V24, CMS/HCC V28) BASIC METABOLIC PANEL Routine 05/06/2024 10:02 AM EST Primary hypertension POC PROTIME INR BLOOD Routine 04/28/2024 Recurrent deep vein thrombosis (CMS/HCC V24, CMS/HCC V28) residential (current) use of anticoagulants POC PROTIME INR BLOOD Routine 04/07/2024 Recurrent deep vein thrombosis (CMS/HCC V24, CMS/HCC V28) medical terminologist (current) use of anticoagulants POC PROTIME INR BLOOD Routine 03/24/2024 Recurrent deep vein thrombosis (CMS/HCC V24, CMS/HCC V28) medical terminologist (current) use of anticoagulants MICROALBUMIN CREATININE URINE RATIO Routine 03/19/2024 8:39 AM EST Controlled type 2 diabetes mellitus with microalbuminuria, without long-term current use of insulin ([facility] V24, CMS/HCC V28) HEMOGLOBIN A1C Routine 03/19/2024 8:39 AM EST Controlled type 2 diabetes mellitus with microalbuminuria, without long-term current use of insulin ([facility] V24, [facility] V28) DXA BONE DENSITY STUDY 1+ SITS AXIAL SKEL Routine 12/25/2023 9:34 AM EDT Age-related osteoporosis without current pathological fracture LIPID PANEL Routine 12/17/2023 from Last 3 Months or Most Recently Relevant to Health Maintenance Results * Vitamin D 25 hydroxy (06/11/2024 9:17 AM EDT) [facility] Vit D, 25-Hydroxy 36.9 30.0 - 80.0 ng/mL LAB CHEMISTRY METHOD 06/11/2024 2:48 PM EDT [facility] Blood Venous blood specimen / Unknown Venipuncture / Unknown 06/11/2024 9:17 AM EDT 06/11/2024 9:17 AM EDT us Naya TEIXEIRA LAB BLOOD ORDERABLES Final Result Performing Organization Address [facility] de Phone Number [facility] [address] [place] [address], [place] [phone] * (ABNORMAL) Prothrombin time with INR (06/11/2024 9:17 AM EDT) Only the most recent of2 resultswithin the time period is included. Protime 32.1(H) 10.6 - 13.9 sec LAB COAGULATION METHOD 06/11/2024 10:45 AM EDT [facility] INR 2.6 LAB COAGULATION METHOD 06/11/2024 10:45 AM EDT [facility] Blood Venous blood specimen / Unknown Venipuncture / Unknown 06/11/2024 9:17 AM EDT 06/11/2024 9:17 AM EDT us Alessandro Marin MD LAB BLOOD ORDERABLES Final Resu lt Performing Organization Address City/[facility]/ZIP Co de Phone Number [facility] [address] [place] [address], * Basic metabolic panel (06/11/2024 9:17 AM EDT) Only the most recent of2 resultswithin the time period is included. Sodium 139 133 - 145 mmol/L LAB CHEMISTRY METHOD 06/11/2024 1:23 PM EDT [facility] Potassium 5.0 3.5 - 5.5 mmol/L LAB CHEMISTRY METHOD 06/11/2024 1:23 PM EDT [facility] Chloride 105 96 - 110 mmol/L LAB CHEMISTRY METHOD 06/11/2024 1:23 PM [facility] CO2 29 21 - 32 mmol/L LAB CHEMISTRY METHOD 06/11/2024 1:23 PM [facility] Anion Gap 5 3 - 11 LAB CHEMISTRY METHOD 06/11/2024 1:23 PM [facility] Glucose 98 70 - 100 mg/dL LAB CHEMISTRY METHOD 06/11/2024 1:23 PM [facility] BUN 17 5 - 25 mg/dL LAB CHEMISTRY METHOD 06/11/2024 1:23 PM [facility] Creatinine 0.73 0.50 - 1.10 mg/dL LAB CHEMISTRY METHOD 06/11/2024 1:23 PM [facility] eGFR 81 >=60 mL/min/1. 73m2 LAB CHEMISTRY METHOD 06/11/2024 1:23 PM [facility] Comment:Calculation based on the??Chronic Kidney Disease Epidemiology Collaboration (CKD-EPI) equation refit??without adjustment for race. BUN/Creatinine Ratio 23.3 LAB CHEMISTRY METHOD 06/11/2024 1:23 PM [facility] Calcium 9.5 8.5 - 10.5 mg/dL LAB CHEMISTRY METHOD 06/11/2024 1:23 PM [facility] Blood Venous blood specimen / Unknown Venipuncture / Unknown 06/11/2024 9:17 AM EDT 06/11/2024 9:17 AM EDT us Naya TEIXEIRA LAB BLOOD ORDERABLES Final Result [facility] [address] [place] [address], [place] [phone] * POC Protime INR Blood (05/26/2024) Only the most recent of4 resultswithin the time period is included. Lot Number INR POC 2.3 Prothrombin Time POC Exp Date Blood 05/26/2024 Sonam Fernandez MD POINT OF CARE TEST ENTER/EDIT OR DERABLES Final Result * External Xray Report (05/18/2024) Anatomical Region Laterality Modality Radiographic Colleen ging Provider [facility] XR PROCEDURES Final Result * (ABNORMAL) Microalbumin creatinine urine ratio (03/19/2024 8:39 AM EST) Pathologist [facility] Creatinine, Urine 38.0 mg/dL LAB CHEMISTRY METHOD 03/19/2024 11:48 AM EST [facility] Microalb, Ur 75.2(H) 0.0 - 29.0 mg/L LAB CHEMISTRY METHOD 03/19/2024 11:48 AM EST [facility] Microalb/Crea t Ratio 198(H) <30 mg/g creat LAB CHEMISTRY METHOD 03/19/2024 11:48 AM EST [facility] Urine Urine specimen obtained by clean catch procedure / Unknown Non-blood Collection / Unknown 03/19/2024 8:39 AM EST 03/19/2024 8:39 AM EST Alessandro Marin MD LAB URINE ORDERABLES Final Resu lt [facility] [address] [place] [address], * (ABNORMAL) Hemoglobin A1c (03/19/2024 8:39 AM EST) Pathologist [facility] Hemoglobin A1C 6.5(H) <6.5 % LAB CHEMISTRY METHOD 03/19/2024 11:21 AM EST [facility] Mean Bld Glu Estim. 140 mg/dL LAB CHEMISTRY METHOD 03/19/2024 11:21 AM EST [facility] [facility] Blood Venous blood specimen / Unknown Venipuncture / Unknown 03/19/2024 8:39 AM EST 03/19/2024 8:39 AM EST Alessandro Marin MD LAB BLOOD ORDERABLES Final Resu lt [facility] ([facility]) [facility] [address] [place] [address], * DXA BONE DENSITY STUDY 1+ SITS AXIAL SKEL (12/25/2023 9:34 AM EDT) Anatomical Region Laterality Modality Bone Densitometr y 08/27/2023 9:43 AM EDT Narrative 12/30/2023 4:06 PM EDT BONE DENSITY ? Lumbar Spine T-score is -3.7 ?? (SD relative to 20-29 y/o adult) Z-score is -0.8 ??(SD relative to age matched peers) This is consistent with osteoporosis by criteria defined by the WHO. Left Hip T-score is -3.1 Z-score is -0.7 This is consistent with osteoporosis by criteria defined by the WHO. Impression: Based on the World Health Organization criteria, Livia Harrell should be classified as having osteoporosis. The [facility] Department of Internal Medicine recommends using National Osteoporosis Foundation (NOF) guidelines in treatment decisions related to osteoporosis. NOF guidelines suggest considering treatment for postmenopausal women and men aged 50 or older presenting with the following: History of hip or vertebral fracture. T-score less than or equal to -2.5 (DXA) at the femoral neck, total hip, or spine, after appropriate evaluation to exclude secondary causes. Low bone mass (T-score between -1.0 and -2.5 at the femoral neck or spine) AND a 10-year probability of a hip fracture greater than or equal to 3% OR a 10-year probability of a major osteoporosis-related fracture greater than or equal to 20% based on the [place]-adapted WHO algorithm Please note that all treatment decisions require clinical judgment and consideration of individual patient factors, including patient preferences, co-morbidities, previous drug use, risk factors not captured in the FRAX model (e.g., frailty, falls, vitamin D deficiency, increased bone turnover, interval significant decline in bone density) and possible under- or over-estimation of fracture risk by FRAX. Procedure Note Gurinder Martinez MD - 01/03/2024 BONE DENSITY Lumbar Spine T-score is -3.7 (SD relative to 20-29 y/o adult) Z-score is -0.8 (SD relative to age matched peers) This is consistent with osteoporosis by criteria defined by the WHO. Left Hip T-score is -3.1 Z-score is -0.7 This is consistent with osteoporosis by criteria defined by the WHO. Impression: Based on the World Health Organization criteria, Livia Harrell should beclassified as having osteoporosis. The [facility] Department of Internal Medicine recommendsusing National Osteoporosis Foundation (NOF) guidelines in treatmentdecisions related to osteoporosis. NOF guidelines suggest consideringtreatment for postmenopausal women and men aged 50 or older presentingwith the following: History of hip or vertebral fracture. T-score less than or equal to -2.5 (DXA) at the femoral neck, total hip,or spine, after appropriate evaluation to exclude secondary causes. Low bone mass (T-score between -1.0 and -2.5 at the femoral neck or spine)AND a 10-year probability of a hip fracture greater than or equal to 3% ORa 10-year probability of a major osteoporosis-related fracture greaterthan or equal to 20% based on the [place]-adapted WHO algorithm Please note that all treatment decisions require clinical judgment andconsideration of individual patient factors, including patientpreferences, co-morbidities, previous drug use, risk factors not capturedin the FRAX model (e.g., frailty, falls, vitamin D deficiency, increasedbone turnover, interval significant decline in bone density) and possibleunder- or over-estimation of fracture risk by FRAX. us Naya TEIXEIRA IMG DXA PROCEDURES Final Re sult * Lipid panel (12/17/2023) LDL/HDL Ratio 3 0 - 4 Triglycerides 91 0 - 150 mg/dL Cholesterol 172 0 - 200 mg/dL HDL 64 >=40 mg/dL LDL Cholesterol 90 0 - 100 mg/dL Blood Venous blood specimen / Unknown us Historical Provider LAB BLOOD ORDERABLES Edit ed Result - Final from Last 3 Months or Most Recently Relevant to Health Maintenance Insurance [facility] MEDICARE Member Subscriber Plan / Payer (Ef fective 2013-Present) Name:HarrellLivia dykes Relation to Subscriber:Self Name:Livia Harrell Payer ID:[id number] Group ID:[id number] Type:Not on file Address: [address] [place] [address] MEDICARE Care Teams Electrical Design Technician Relationship Specialty Start Date End Date Alessandro Marin MD [address] [place] [id number] PCP - General Internal Medicine 01/09/24
--- OUTSIDE RECORDS SUMMARY | 2024-06-22 09:09 | XMS_ITS | Encounter Summary ---
Author Organization [facility] Address [address] [place] [address] Care Team Providers Care Bender Machine Name Role Phone Alessandro Marin MD Primary Care Provider [phone] Reason for Visit * Reason Comments Injections Prolia Encounter Details Date Type Department Care Team (Late st Contact Info) Description 06/18/2024 12:00 PM EDT Clinical Support Endocrinology [address] [phone] Social History Tobacco Use Types Packs/Day Years Used Date Smoking Tobacco: Never Smokeless Tobacco: Never Alcohol Use Standard Drinks/Week Comments No 0 (1 standard drink = 0.6 oz pur e alcohol) Comments No Sex and Gender Information Value Date Recorded Sex Assigned at Not on file Legal Sex Female 8:22 AM EST Gender Identity Not on file Sexual Orientation Not on file documented as of this encounter Last Filed Vital Signs Vital Sign Reading Time Taken Comments Blood Pressure 132/72 06/18/2024 12:15 PM EDT Pulse 83 06/18/2024 12:15 PM EDT Temperature 36.9 ??C (98.4 ??F) 06/18/2024 12:15 PM E DT Respiratory Rate - - Oxygen Saturation - - Inhaled Oxygen Concentration - - Weight - - Height - - Body Mass Index - - documented in this encounter Progress Notes * Nelida Hills RN - 06/18/2024 12:00 PM EDT Pt here for Prolia Injection Reviewed CA+, 25 Hydroxy (Vit D) , Phophate and Magnesium levels were reviewed with chacorta TEIXEIRA Vital signs taken LMP confirmed- HCG test performed- result post menopausal Medication warmed to room temperature for at least 15-30 minutes Prolia injected SC in left arm- see immunization tab. The patient was advised to: Remain in the building for 20 minutes after the injection and to advise us of any signs of an allergic reaction-such as feeling heavy-chested, Short of breath, itchy, rash, sudden cough, swelling of face/ throat. maintain good oral hygiene to prevent any mouth sores take Calcium supplements 1000 mg/ day - fdc Take Vitamin D 400 IU/day- fdc any female patient who becomes should stop taking the drug and contact your provider Any male patient who has a partner is made aware that the medication may be present in seminal fluid and exposure to the drug may occur. Monitor for signs of low calcium levels such as muscle cramps or twitching or numbness/ tingling inthe toes, fingers, and around the mouth- if noted- contact your priovider Seek prompt medical care if signs and symptoms of severe infection including cellulities or skin reactions Pt expressed understanding of the information and was advised to contact us if any concerns/ questions. appt given for 6 month repeat injection on 12/24/2024 at 9 am documented in this encounter Plan of Treatment Upcoming Encounters Date Type Department Care Team (Late st Contact Info) Description 06/23/2024 8:10 AM EDT Anticoagulation - Warfarin Visit Coumadin [address] [phone] 08/12/2024 8:30 AM EDT Office Visit Orthopedic Surgery - [place] [address] [phone] Hiren Michel DPM [address] [address] 09/07/2024 8:45 AM EDT Office Visit Internal Medicine - [facility] [address] [place] [address] Anthony Andrea PA [address] [place] [address] 12/24/2024 9:00 AM EDT Clinical Support Endocrinology [address] [phone] documented as of this encounter Visit Diagnoses Not on filedocumented in this encounter Administered Medications Inactive Administered Medications - up to 3 most recent administrations Medication Order MAR Action Action Date Dose Rate Site denosumab (PROLIA) syringe 60 mg 60 mg, subcutaneous, Once, On Fri06/08/24 at 1630, For 1 doseIndications:Age-relate d osteoporosis without current pathological fracture Given 06/18/2024 12:28 PM EDT 60 mg Left Upper Arm (Back) documented in this encounter Care Teams Bender Machine Relationship Specialty Start Date End Date Alessandro Marin MD [address] [place] [address] PCP - General Internal Medicine 01/09/24 documented as of this encounter
--- OUTSIDE RECORDS SUMMARY | 2024-06-22 09:09 | XMS_ITS | Encounter Summary ---
Author Organization [facility] Address [address] [place] [address] Care Team Providers Care Kaiako Kura [place] Maori Name Role Phone Alessandro Marin MD Primary Care Provider [phone] Encounter Details Date Type Department Care Team (Late st Contact Info) Description 06/07/2024 Telephone [facility] [place] [address] [place] [phone] Naya Sigala PA [address] [facility] [place] [address] Social History Tobacco Use Types Packs/Day Years [...] on file documented as of this encounter Progress Notes * Nelida Hills RN - 06/15/2024 10:17 AM EDT Called Dora -daughter Appt scheduled for 06/18 at 12pm * Nelida Hills RN - 06/10/2024 3:10 PM EDT Called daughter Dora advised to have labs drawn for Prolia injection * Melissa Naik - 06/10/2024 2:10 PM EDT DAUGHTER RETURNED YOUR CALL * Nelida Hills RN - 06/10/2024 1:40 PM EDT Called patient, no answer, left. * LLUVIA Raines - 06/08/2024 4:08 PM EDT Done * Nelida Hills RN - 06/08/2024 3:05 PM EDT Called pharmacy, med will be delivered 06/10 Please order updated labs Please sign order * LLUVIA Raines - 06/08/2024 10:59 AM EDT She is due June 17. I ordered the Prolia in March, what is the status on this patient's Prolia * Melissa Naik - 06/07/2024 12:14 PM EDT Patient is looking for an update in regards to her prolia injection. Please call her at [phone] documented in this encounter Plan of Treatment Upcoming Encounters Date Type Department Care Team (Late st Contact Info) Description 06/23/2024 8:10 AM EDT Anticoagulation - Warfarin Visit Coumadin [address] [phone] 08/12/2024 8:30 AM EDT Office Visit Orthopedic Surgery - [place] [address] [phone] Hiren Michel, DPKarthik [address] [address] 09/07/2024 8:45 AM EDT Office Visit Internal Medicine - [facility] [address] [place] [address] Anthony Andrea PA [address] [place] [address] 12/24/2024 9:00 AM EDT Clinical Support Endocrinology [address] [phone] documented as of this encounter Results * Vitamin D 25 hydroxy (06/11/2024 9:17 AM EDT) [facility] Vit D, 25-Hydroxy 36.9 30.0 - 80.0 ng/mL LAB CHEMISTRY METHOD 06/11/2024 2:48 PM EDT [facility] Blood Venous blood specimen / Unknown Venipuncture / Unknown 06/11/2024 9:17 AM EDT 06/11/2024 9:17 AM EDT Naya TEIXEIRA LAB BLOOD ORDERABLES Final Result [facility] [address] [place] [address], * Basic metabolic panel (06/11/2024 9:17 AM EDT) [facility] Sodium 139 133 - 145 mmol/L LAB CHEMISTRY METHOD 06/11/2024 1:23 PM EDT [facility] Potassium 5.0 3.5 - 5.5 mmol/L LAB CHEMISTRY METHOD 06/11/2024 1:23 PM EDT [facility] Chloride 105 96 - 110 mmol/L LAB CHEMISTRY METHOD 06/11/2024 1:23 PM EDT [facility] CO2 29 21 - 32 mmol/L LAB CHEMISTRY METHOD 06/11/2024 1:23 PM [facility] Anion Gap 5 3 - 11 LAB CHEMISTRY METHOD 06/11/2024 1:23 PM [facility] Glucose 98 70 - 100 mg/dL LAB CHEMISTRY METHOD 06/11/2024 1:23 PM [facility] BUN 17 5 - 25 mg/dL LAB CHEMISTRY METHOD 06/11/2024 1:23 PM [facility] Creatinine 0.73 0.50 - 1.10 mg/dL LAB CHEMISTRY METHOD 06/11/2024 1:23 PM [facility] eGFR 81 >=60 mL/min/1. 73m2 LAB CHEMISTRY METHOD 06/11/2024 1:23 PM [facility] Comment:Calculation based on the??Chronic Kidney Disease Epidemiology Collaboration (CKD-EPI) equation refit??without adjustment for race. BUN/Creatinine Ratio 23.3 LAB CHEMISTRY METHOD 06/11/2024 1:23 PM [facility] Calcium 9.5 8.5 - 10.5 mg/dL LAB CHEMISTRY METHOD 06/11/2024 1:23 PM [facility] Blood Venous blood specimen / Unknown Venipuncture / Unknown 06/11/2024 9:17 AM EDT 06/11/2024 9:17 AM EDT us Naya TEIXEIRA LAB BLOOD ORDERABLES Final Result [facility] [address] [place] [address], [place] [phone] documented in this encounter Visit Diagnoses Diagnosis Age-related osteoporosis without current pathological fracture- Primary documented in this encounter Orders Medications Ordered That Robert ht Not Have Been Administered Count Last Ordered Date First Ordered Date denosumab (PROLIA) syringe 60 mg 1 06/09/19 25 documented in this encounter Care Teams Kaiako Kura [place] Maori Relationship Specialty Start Date End Date Alessandro Marin MD [address] [facility] [place] [address] PCP - General Internal Medicine 01/09/24 documented as of this encounter
--- OUTSIDE RECORDS SUMMARY | 2024-06-22 09:09 | XMS_ITS | Clinical Summary ---
Author Organization [facility], Address [address] [place] [address] Phone Care Team Providers Care Coal Equipment Operator Name Role Phone Pedro Ambrocio MD Primary Care Provide r Allergies No known active allergies Medications alendronate (FOSAMAX) 70 MG tablet Comments: Filled Date: Aug 06 2017 12:00AM Duration: 84 Active amLODIPine (NORVASC) 5 MG tablet Comments: Filled Date: Aug 22 2017 12:00AM Duration: 90 Active aspirin 81 MG chewable tablet Comments: Filled Date: Aug 22 2017 12:00AM Duration: 90 Active atorvastatin (LIPITOR) 20 MG tablet Comments: Filled Date: Jun 16 2017 12:00AM Patient Notes: TAKE 1 TAB BY MOUTH DAILY. Duration: 90 06/16/2017 Active glipiZIDE (GLUCOTROL XL) 2.5 MG 24 hr tablet Comments: Filled Date: Nov 19 2017 12:00AM Duration: 30 Active lisinopril (PRINIVIL,ZESTR IL) 20 MG tablet Comments: Filled Date: Nov 09 2017 12:00AM Duration: 30 Active QUEtiapine (SEROquel) 50 MG tablet Comments: Filled Date: Jul 31 2017 12:00AM Duration: 30 Active ondansetron (ZOFRAN) 4 MG tablet Comments: Filled Date: Nov 19 2017 12:00AM Duration: 7 Active traMADol (ULTRAM) 50 MG tablet Comments: Filled Date: Jul 07 2017 12:00AM Duration: 28 Active warfarin (COUMADIN) 5 MG tablet Comments: Filled Date: Jun 30 2017 12:00AM Duration: 30 Active ferrous sulfate 325 (65 Fe) MG tablet Comments: Filled Date: Jun 30 2017 12:00AM Duration: 30 Active latanoprost (XALATAN) 0.005 % ophthalmic solution Comments: Filled Date: Oct 01 2017 12:00AM Duration: 42 Active Omeprazole 20 MG tablet delayed-release Comments: Filled Date: Aug 22 2017 12:00AM Duration: 90 Active Sennosides (SENNA) 8.6 MG capsule Comments: Filled Date: Dec 04 2017 12:00AM Duration: 30 Active Active Problems Problem Noted Date Diagnosed Date Microalbuminuria 07/02/2019 Hyperlipidemia 07/02/2019 Chronic kidney disease stage 2 07/02/2019 Anemia 07/02/2019 Chronic kidney disease due to type 2 diabetes me llitus 07/02/2019 Chronic kidney disease due to hypertension 07/01 Immunizations Immunization Administration Dates Next Due Pneumococcal Conjugate 13-Valent 03/14/2016 Pneumococcal, Unspecified 04/15/2013 Family History Medical History Relation Comments Dementia Sibling sister Relation Status Comments Father Mother Sibling Social History Tobacco Use Types Packs/Day Years Used Date Smoking Tobacco: Never Alcohol Use Standard Drinks/Week Comments No 0 (1 standard drink = 0.6 oz pur e alcohol) Comments Unknown Sex and Gender Information Value Date Recorded Sex Assigned at Not on file Legal Sex Female 4:31 PM EST Gender Identity Not on file Sexual Orientation Not on file Last Filed Vital Signs Vital Sign Reading Time Taken Comments Blood Pressure 134/56 10/05/2018 12:00 PM EDT Pulse - - Temperature - - Respiratory Rate - - Oxygen Saturation - - Inhaled Oxygen Concentration - - Weight - - Height - - Body Mass Index - - Plan of Treatment Health Maintenance Due Date Last Done Comments Pneumococcal Vaccine: 50+ Years (2 of 2 - PPSV23) 05/09/2016 03/14/2016, 04/15/2013 Diabetes: Hemoglobin A1C 07/02/2019 Diabetes: Ophthalmology Exam 07/02/2019 Diabetes: Pedal Pulse Checked 07/02/2019 Diabetes: Sensory Foot Exam 07/02/2019 Diabetes: Visual Foot Exam 07/02/2019 Influenza Vaccine (Season Ended) 2024 Pneumococcal Vaccine: Peds ( 0 to 5 Years) and At-Risk Patients (6 to 49 Years) Discontinued 03/14/2016, 04/15/2013 Hepatitis B Vaccine Aged Out No longe r eligible based on patient's age to complete this topic Insurance [facility] [place] [id number] Care Teams Coal Equipment Operator Relationship Specialty Start Date End Date Pedro Ambrocio MD [address] [place] [address] PCP - General Internal Medicine 07/12/19
== END 2024-06-22 09:33 | disposition home or self-care (01) ==
LOC: HO.HSMS 08:46
PROVIDERS: PCP Internal Medicine; Visit Provider Nurse Practitioner Family
DX: R41.89 Other symptoms and signs involving cognitive functions and awareness (principal); Z55.0 Illiteracy and low-level literacy; R25.1 Tremor, unspecified; G47.9 Sleep disorder, unspecified
CPT/HCPCS: 99214

== ENCOUNTER → 2024-06-22 08:46 | Outpatient (BNVA) | payer OTHER, SELFPAY | PROVIDERS: PCP Internal Medicine; Visit Provider Nurse Practitioner Family | DX: R25.1 Tremor, unspecified (principal); F09 Unspecified mental disorder due to known physiological condition; G47.9 Sleep disorder, unspecified; Z55.0 Illiteracy and low-level literacy | CPT/HCPCS: 99212 ==

== ENCOUNTER 2024-12-28 09:18 | Outpatient (AMB) | payer OTHER, SELFPAY ==
--- OUTSIDE RECORDS SUMMARY | 2005-08-22 20:00 | XMS_ITS | Continuity of Care Document ---
Author Organization [facility] Address [address] [place] [address],[address] [place] [address] Phone Care Team Providers Care [employer] Driver Name Role Phone Z-Converted, Provider Unavailable Unavailabl e Medications Medication Instructions Dosage Effective Dates (start - stop) Status Comments atenolol 25 mg Tab 1 QD - Active enalapril maleate 20 mg Tab 2 Every Morning - Active hydrochlorothiazide 25 mg Tab 1 po daily in am 1 po in pm as needed - Active Atacand 16 mg Tab 1 QD - Active Prilosec OTC 20 mg Tab 1 Every Morning - Active Mevacor 40 mg Tab 2 tabs po daily with evening meal - Active Naprosyn 375 mg Tab 1 Two Times A Day As Needed for pain - Active Protonix 40 mg Tab 1 QD prn - Active hydrochlorothiazide 25 mg Tab 1 QD - Active Motrin 600 mg Tab 1 Every Eight Hours As Needed - Active Alphagan P 0.15 % Eye Drops 1 DROP left eye twice a day - Active timolol 0.5 % Eye Gel Forming Soln 1 DROP left eye twice a day. - Active Xalatan 0.005 % Eye Drops 1 DROP in left eye at bed time - Active Advance Directives Directive Yes / No Effective Date File Name No Information Encounters Encounter Description Practice Location Reason(s) For Visit Diagnoses Date Provider Providers Copied on Encounter [facility], [address] [place] [address],[address], [place], [place], [id number], [place] tel:[phone] [facility] Other malaise and fatigue 3200 6 Z-Converted Provider. . [facility], [address], [place], [place], [id number], [place] tel:[phone] Converted Locations No Information 0 - 6 Z-Converted Provider. . [facility], [address], [place], [place], [id number], [place] tel:[phone] Converted Locations No Information 6 No Information [facility], [address], [place], [place], [id number], [place] tel:[phone] Converted Locations No Information 6 No Information m[facility], [address], [place], [place], [id number], [place] tel:[phone] Converted Locations No Information 5 No Information m[facility], [address], [place], [place], [id number], [place] tel:[phone] [facility] Osteoarthrosi s, generalized, involving unspecified site 5 No Information m[facility], [address] [address], [place], [place], [id number], [place] tel:[phone] Converted Locations No Information 200 5 No Information mason [facility], [address], [place], [place], [id number], [place] tel:[phone] Converted Locations No Information 5 No Information mason [facility], [address], [place], [place], [id number], [place] tel:[phone] [facility] Varicose veins of lower extremities without mention of ulcer or inflammationE sophageal refluxBackach e, unspecified 5 No Information m[facility], [address], [place], [place], [id number], [place] tel:[phone] Converted Locations No Information 5 No Information mason [facility], [address], [place], [place], [id number], [place] tel:[phone] [facility] Helicobacter pylori (h. pylori) infectionDepr essive disorder, not elsewhere classified 3-200 5 No Information [facility], [address] [facility] [facility] [address], [place], [place], [id number], [place] tel:[phone] [facility] Enthesopathy of knee, unspecified 3 Z-Converted Provider. . [facility], [address] [facility] [address], [place], [place], [id number], [place] tel:[phone] [facility] Other and unspecified hyperlipidemi aOpen-angle glaucoma, unspecifiedUn specified essential hypertensionA bnormal Papanicolaou smear of cervix and cervical HPV 2 No Information Family History Family Member Type Diagnosis Age At Onset No Information Immunizations Vaccine Date Status Comments Influenza Vaccine administered [facility] Immun[facility] Record PNEUMOVAX (PCV23) administered Source[facility] Immunization Record Influenza Vaccine administered Source[facility] Immunization Record Tetanus and Diphtheria Toxoid administere d Source: New Immunization Record Tetanus and Diphtheria Toxoid administere d Source: New Immunization Record Payers Payer name Insurance type Covered republican ID Authoriza tion(s) No Information Social History Type Description Quantity Date Captured Comments Sex Female Smoking Status No Information Chief Complaint And Reason For Visit No Information Reason For Referral Reason For Referral No Information History Of Present Illness Encounter Date Complaint History Of Prese nt Illness No Information Functional Status Date Functional Assessmen t No Information Instructions Date Instruction Additional Infor mation No Information Assessments Type Assessment Date No Information Patient Care Teams Name Effective Dates (start - stop) Status Members No Information
--- OUTSIDE RECORDS SUMMARY | 2024-12-23 08:15 | XMS_ITS | Encounter Summary ---
Author Organization [facility] Address [address] [place] [address] Care Team Providers Care Rehabilitation Worker Name Role Phone Alessandro Mrain MD Primary Care Provider [phone] Reason for Visit * Reason Comments Anticoagulation Encounter Details Date Type Department Care Team (Latest Contact Info) Description 12/23/2024 8:15 AM EDT Clinical Support Coumadin [address] [phone] Recurrent deep vein thrombosis (CMS/HCC V24, CMS/HCC V28) (Primary Dx); jail (current) use of anticoagulants Social History Tobacco Use Types Packs/Day Years [...] as of this encounter Progress Notes * Love Helton LPN - 12/23/2024 8:15 AM EDT Images from the original note were not included. Anticoagulation Summary As of 12/23/2024 INR goal: 2.0-3.0 TTR: 78.9% (11.3 mo) INR used for dosin.9 (12/23/2024) Warfarin maintenance plan: 2.5 mg (5 mg x 0.5) every Mon, Wed, Fri; 5 mg (5 mg x 1) all other days Weekly warfarin total: 27.5 mg Plan last modified: oLve Helton LPN (12/23/2024) Next INR check: 12/30/2024 Priority: Critical Target end date: -- Indications Recurrent deep vein thrombosis (CMS/HCC V24 CMS/HCC V28) [I82.409] jail (current) use of anticoagulants [Z79.01] Anticoagulation Episode Summary INR check location: Anticoagulation Clinic Preferred lab: -- Send INR reminders to: [facility] Comments: -- Anticoagulation Care Providers Provider Role Specialty Phone number Alessandro Marin MD Internal Medicine [phone] Patient presents for follow-up of ongoing Warfarin therapy. Patient had her INR drawn via A/C Clinic Draw. Patient denies any significant issues with adherence to the medication regimen. Patient denies experiencing any symptoms of bleeding, such as unusual bruising, nosebleeds, hematuria, or melena. Patient reports feeling generally well and denies any new complaints. Plan of care: New warfarin dose: Increase dose to 2.5 Warfarin education of dietary considerations, medication/supplement interactions, and the need to continue avoiding activities that increase the risk of injury or bleeding reinforced. Patient verbalized understanding of ongoing INR monitoring and dosage change. Patient is aware of the signs of potential complications and knows to contact the clinic if they occur. Anticoagulation Flowsheet updated with new plan of care. Plan discussed with provider, no additional changes at this time. Anticoagulation Clinic Protocol Dose Type Dose Range INR Dose Adjustment # Doses Omitted Recheck Date Mini Dose 1.4-2.0 Very Low <1.2 Consult Provider 0 1 week Low 1.2-1.4 If singular event - no change If 2 in a row or 2 of the last 3 - Increase weekly dose by 10% 0 1 week In Range 1.4-2.0 No adjustment 0 1-4 weeks* High 2.0-3.0 If singular event - no change If 2 in a row or 2 of the last 3 - Decrease weekly dose by 10% 0 1 week Very High >3.0 Consult Provider 2 2 days If OK after 2 days - Decrease weekly dose by 10% 0 1 week Usual Dose 2.0-3.0 Very Low <1.5 Consult Provider 0 1 week Low 1.5-2.0 If singular event - No change If 2 in a row or 2 of the last 3 - Increase weekly dose by 10% 0 1 week In Range 2.0-3.0 No Adjustment 0 1-4 weeks* High >3.0-3.5 If singular event - No change If 2 in a row or 2 of the last 3 - Decrease weekly dose by 10% 0 1 week Very High >3.5-4.0 Consult Provider 1 2 days >4.0 Consult Provider 2 2 days If OK after 2 days - Decrease weekly dose by 10% 0 1 week Mechanical Valve 2.5-3.5 Very Low <1.5 Consult Provider 0 1 week Low 1.5-2.5 If singular event - No change If 2 in a row or 2 of the last 3 - Increase weekly dose by 10% 0 1 week In Range 2.5-3.5 No Adjustment 0 1-4 weeks* High >3.5-4.0 If singular event - No change If 2 in a row or 2 of the last 3 - Decrease weekly dose by 10% 0 1 week Very High >4.0-4.9 Consult Provider 1 2 days >5.0 Consult Provider 2 2 days If OK after 2 days - Decrease weekly dose by 10% 0 1 week * In range 1 week = recheck in 1 week In range 2 weeks = recheck in 2 weeks In range 3 weeks = recheck in 3 weeks In range 4 weeks = recheck in 4 weeks Cosigned by Alessandro Marin MD at 12/23/2024 8:26 AM EDT documented in this encounter Plan of Treatment Upcoming Encounters Date Type Department Care Team (Late st Contact Info) Description 12/30/2024 8:15 AM EDT Clinical Support Coumadin [address] [phone] 02/14/2025 8:45 AM EST Office Visit Orthopedic Surgery - [address] [phone] Hiren Michel DPM [facility] [place] [phone] 03/10/2025 9:00 AM EST Office Visit Internal Medicine - [facility] [address] [place], [place] [phone] Alessandro Marin MD [address] [place] [address] documented as of this encounter Procedures Procedure Name Priority Date/Time Associated Diagnosis Comments POC PROTIME INR BLOOD Routine 12/23/2024 8:21 AM EDT Recurrent deep vein thrombosis (CMS/HCC V24, CMS/HCC V28) jail (current) use of anticoagulants documented in this encounter Results * POC Protime INR Blood (12/23/2024 8:21 AM EDT) Lot Number INR POC 1.9 Prothrombin Time POC Exp Date Blood 12/23/2024 8:21 AM EDT Alessandro Marin MD POINT OF CARE TEST ENTER/EDIT O RDERABLES Final Result documented in this encounter Visit Diagnoses Diagnosis Recurrent deep vein thrombosis (CMS/HCC V24, CMS/HCC V28)- 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
[2024-12-28 09:27] VITALS: BP 200/90; PULSE 69; O2SAT 98; BMI 19.5
--- NOTE | 2024-12-28 09:27 | MHC.OFFVIS ---
Vital Signs 12/28/24 09:27 Height 4 ft 8 in Weight 87 lb BMI 19.5 BP 200/90 H Blood Pressure Location Rt brachial Position Sitting Pulse 69 Pulse Source Pulse Oximeter Pulse Oximetry (%) 98 Oxygen Delivery Method Room Air Intake Visit Reasons: 6 month Follow up Intake Note: Patient presents follow up Cognitive dysfunction/tremors. Family Helper Required: No Family Helper Services: Family Helper Offered & Declined Family Helper Name: Daughter Accompanied by: Daughter Allergies No Known Allergies Allergy (Verified 12/28/24 09:27) Medication List - Last Reconciled 12/28/24 by ROSALINDA Nevarez amlodipine (Norvasc) 2.5 mg PO DAILY aspirin (Adult Low Dose Aspirin) 81 mg PO DAILY atorvastatin 20 mg PO DAILY denosumab (Prolia) 60 mg subcut [id number] dorzolamide 2% 1 drp ophthalmic (eye) TID ferrous sulfate 325 mg PO DAILY lisinopril 20 mg PO DAILY memantine 28 mg PO DAILY 30 days metformin 500 mg PO DAILY mirtazapine 7.5 mg PO BEDTIME 30 days omeprazole 20 mg PO DAILY tramadol 50 mg PO DAILY trazodone 50 mg PO BEDTIME warfarin 5 mg PO DAILY HPI Comments Details: 83-yr-old female presents for f/u visit, accompanied by her dtr, Dora. Pt reports she has had further worsening of vision, currently being treated for corneal edema. 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 12/2024 Bun/Physical Metallurgist: 17/0.73 Dtr and patient states pt's cognition is about the same. Prone to STM lapses, but if she forgets something, she is prone to recall it afterwards. Pt continues to live at home with her , however he spends most of his day in his office- so does not help much. Dtr continues to assist pt. Dtr needs to cook for patient as she was forgetting steps/ingredients. Pt states she is eating better on mirtazapine. Has always had always has had a small appetite. Pt is sleeping well. Pt does repeat herself. Dtr notices that patient may space out during conversations but can easily regain her attention. Dtr also notices that she needs more detailed explanations for her to understand things. Pt does not wander or engage in unsafe behaviors. Sometimes, she may open the front door and just stand there a while- just to look at the cars. Dtr monitors via a camera. States her mood is better than before. At the last visit, she was having issues with her . Hand tremor is better since dtr gave pt small balls to exercise her hands. These also help her when she is anxious. [facility] Surgical History H/O colonoscopy History of tubal ligation Family History Father CVA (cerebral vascular accident) Myocardial infarction Mother Glaucoma Sister High blood pressure Dementia Myocardial infarction Brother DJD (degenerative joint disease) Social History Alcohol intake: never Patient Tobacco Use Status: Never used Tobacco Physical Exam Vital Signs: Last Vital Signs Pulse 69 12/28/24 09:27 BP 200/90 H 12/28/24 09:27 Pulse Ox 98 12/28/24 09:27 Oxygen Delivery Method Room Air 12/28/24 09:27 BMI result Body Mass Index 19.5 Const General: cooperative and no acute distress Resp Effort & Inspection: normal respiratory effort and able to speak in complete sentences Neuro Other: A&O w/ STM lapses. She is able to state the month, day, season, but sttaes the date as the (1 day off). She is able to state we are in the 1st floor of a doctor's office, in [facility]. Responding appropriately. Pleasant affect No visible UE tremor. General: moves all extremities Cranial nerves: Yes CN's II-XII intact bilaterally Cognition (Neuro): normal cognition Gait exam (Neuro): Assisted gait required (cane) Psych Appearance: grossly normal Speech and movement: Clear speech present Affect: normal affect Attitude: cooperative Assessment & Plan Assessment & Plan (1) Cognitive dysfunction: Comment: STM difficulties and repeating herself. sister passed from AD around 80 yo. Code(s): F09 - Unspecified mental disorder due to known physiological condition Category: Medical (2) Literacy level of illiterate: Comment: Belarusian speaking- never learned how to read or write in Belarusian. Code(s): Z55.0 - Illiteracy and low-level literacy Category: Social Hx (3) Tremor: Comment: asymmetric BUE tremor. ? central/CV process, ? early PD. Code(s): R25.1 - Tremor, unspecified Category: Medical (4) Sleep difficulties: Code(s): G47.9 - Sleep disorder, unspecified Category: Medical Plan Recent 12/2024 BMP- WNL Check updated CBC, B12/folate- order slip so called given to patient and daughter they will do and they would next routine lab draw Monica. Continue Memantine ER 28mg qd- for neuroprotection. Continue Mirtazapine 7.5mg qhs May continue Trazodone 50mg qhs. Continue optimizing diet intake. Continue to optimize physical activity and cognitively stimulating activities. Monitor tremor. Continue firm and soft ball hand exercises, as they have been helpful. Future considerations- considering work-up for evidence of amyloid eitiology of dementia s/s. f/u in 6 months or sooner prn Orders: Orders Vitamin B12 Today D64.9 - Anemia, unspecified, E11.9 - Type 2 diabetes mellitus without complications, N18.9 - Chronic kidney disease, unspecified Complete Blood Count Auto Diff Today D64.9 - Anemia, unspecified, E11.9 - Type 2 diabetes mellitus without complications, N18.9 - Chronic kidney disease, unspecified Folate Today D64.9 - Anemia, unspecified, E11.9 - Type 2 diabetes mellitus without complications, N18.9 - Chronic kidney disease, unspecified Coding Level of Care Code Est Pt Level 4 (00117) Diagnoses Cognitive dysfunction F09 Literacy level of illiterate Z55.0 Tremor R25.1 Sleep difficulties G47.9
--- OUTSIDE RECORDS SUMMARY | 2024-12-28 10:26 | XMS_ITS | Encounter Summary ---
Author Organization [facility] Address [address] [place] [address] Care Team Providers Care Cassandra Consultant Name Role Phone Alessandro Marin MD Primary Care Provider Encounter Details Date Type Department Care Team ([facility] Contact Info) Description 12/23/2024 Results Follow-Up Endocrinology - [address] [phone] Naya Sigala PA [address] [place] [address] Social History Tobacco Use Types Packs/Day Years [...] on file documented as of this encounter Plan of Treatment Upcoming Encounters Date Type Department Care Team ([facility] Contact Info) Description 12/30/2024 8:15 AM EDT Clinical Support Coumadin Clinic - [address] [phone] 02/14/2025 8:45 AM EST Office Visit Orthopedic Surgery [address] [phone] Hiren Michel DPM [address] [place] [phone] 03/10/2025 9:00 AM EST Office Visit Internal Medicine - [facility] [address] [facility] [place] [phone] Alessandro Marin MD [address] [place] [address] documented as of this encounter Visit Diagnoses Not on filedocumented in this encounter Care Teams Cassandra Consultant Relationship Specialty Start Date End Date Alessandro Marin MD [address] [place], [place] [address] [id number] PCP - General Internal Medicine 01/09/24 documented as of this encounter
--- OUTSIDE RECORDS SUMMARY | 2024-12-28 10:26 | XMS_ITS | Encounter Summary ---
Author Organization [facility] Address [address] [place] [address] Care Team Providers Care Hospitality Workers Name Role Phone Alessandro Marin MD Primary Care Provider [phone] Encounter Details Date Type Department Care Team ([facility] Contact Info) Description 12/08/2024 Results Follow-Up Internal Medicine - [facility] [address] [place] [phone] Ayesha Ortiz [place] Social History Tobacco Use Types Packs/Day Years [...] Upcoming Encounters Date Type Department Care Team ([facility] Contact Info) Description 12/30/2024 8:15 AM EDT Clinical Support Coumadin [address] [phone] 02/14/2025 8:45 AM EST Office Visit Orthopedic Surgery - [address] [phone] Hiren Michel DPM [address] [place] [phone] 03/10/2025 9:00 AM EST Office Visit Internal Medicine - [facility] [address] [facility] [place] [address] Alessandro Marin MD [address] [facility] [place] [address] documented as of this encounter Visit Diagnoses Not on filedocumented in this encounter Care Teams Hospitality Workers Relationship Specialty Start Date End Date Alessandro Marin MD [address] [facility] [place] [address] PCP - General Internal Medicine 01/09/24 documented as of this encounter
--- OUTSIDE RECORDS SUMMARY | 2024-12-28 10:27 | XMS_ITS | Clinical Summary ---
Author Organization [facility] [address] [place] [address] [place] [phone] Phone Care Team Providers Care Product Lister Name Role Phone Alessandro Marin MD Primary Care Provider [phone] Allergies No known active allergies Medications latanoprost (XALATAN) 0.005 % ophthalmic solution Active memantine (NAMENDA XR) 7 mg extended release capsule Take 1 capsule (7 mg total) by mouth 1 (one) time each day. For 30 days. Active timolol (TIMOPTIC) 0.5 % ophthalmic solution Administer 1 drop into both eyes 2 (two) times a day. Active prednisoLONE acetate (PRED FORTE) 1 % ophthalmic suspension 1 drop 3 (three) times a day. Active FREESTYLE LANCETS MISC Use for finger stick once a day. Active dorzolamide HCl (DORZOLAMIDE OPHT) apply to the eye. Active mirtazapine (REMERON) 7.5 mg tablet Take 1 Tablet by mouth at bedtime. Active denosumab (PROLIA) 60 mg/mL syringe syringe Inject 1 mL (60 mg total) under the skin 1 (one) time for 1 dose. 1 mL Active warfarin (COUMADIN) 5 mg tablet TAKE 1/2 -1 TABS BY MOUTH DAILY DIRECTED AT SAME TIME PER DAY. DONT CHANGE DIETARY HABITS. MAY CAUSE HEAVY BLEEDING 90 tablet 1 Active metFORMIN (GLUCOPHAGE) 500 mg tabletIndication s:Type 2 diabetes mellitus with diabetic nephropathy ([facility] V24, [facility] V28) TAKE 1 TABLET BY MOUTH EVERY DAY 90 tablet 1 Active Prolia 60 mg/mL syringe syringeIndicatio ns:Osteoporosis, unspecified osteoporosis type, unspecified pathological fracture presence INJECT 60 MG SUBCUTANEOUSLY ONCE EVERY 6 MONTHS 1 mL 1 Active atorvastatin (LIPITOR) 20 mg tabletIndication s:Mixed hyperlipidemia TAKE 1 TABLET BY MOUTH EVERY DAY 90 tablet 1 025 Active ferrous sulfate 325 mg (65 mg elemental iron) tabletIndication s:Essential (primary) hypertension TAKE 1 TABLET BY MOUTH EVERY DAY 90 tablet 1 Active omeprazole (PriLOSEC) [address] capsule TAKE 1 CAPSULE BY MOUTH EVERY DAY 90 capsule 1 Active lisinopriL (PRINIVIL,ZESTRI L) 5 mg tablet TAKE 1 TABLET BY MOUTH 1 TIME EACH DAY. 90 tablet 1 Active traZODone (DESYREL) 50 mg tablet Take 1 tablet (50 mg total) by mouth at bedtime as needed for sleep. 90 tablet 1 Active traMADoL (ULTRAM) 50 mg tabletIndication s:Primary osteoarthritis involving multiple joints Take 1 tablet (50 mg total) by mouth 1 (one) time each day if needed for severe pain. Max Daily Amount: 50 mg 28 tablet Active lisinopriL (PRINIVIL,ZESTRI L) 5 mg tablet Take 1 tablet (5 mg total) by mouth 1 (one) time each day. 90 each 1 025 2024 Discontinued traZODone (DESYREL) 50 mg tablet TAKE 1 TABLET BY MOUTH NIGHTLY NEEDED FOR SLEEP 90 tablet 1 025 2024 Discontinued(R eorder) traMADoL (ULTRAM) 50 mg tabletIndication s:Primary osteoarthritis involving multiple joints Take 1 tablet by mouth daily as needed for pain 28 tablet 025 2024 Discontinued Active Problems Problem Noted Date Diagnosed Date Mild Alzheimer's dementia wi thout behavioral disturbance, psychotic disturbance, mood disturbance, or anxiety, unspecified timing of dementia onset ([facility] V24, [facility] V28) 12/08/2024 Recurrent deep vein thrombosis ([facility] V24, [facility] V28) 02/06/2024 correction (current) use of anticoagulants 2023 COVID 02/08/2022 [...] I spoke with both of them in Welsh and he spoke with me in [place] as well and clearly interpretted to her. Pelvic pain 11/13/2017 Overview (01/22/2024): Last Assessment & Plan: Will order pelvic US given prolapse and pain to ensure no [facility] [employer] pathology. None noted today. She also agrees to follow up with PCP. Hyperlipidemia 08/27/2016 Recurrent deep vein thrombos is (DVT) ([facility] V24, [facility] V28) 03/14/2016 Microalbuminuria 12/13/2015 Illiteracy [...] 07/29/2012 Diabetes mellitus with renal manifestations, controlled ([facility] V24, [facility] V28) 07/29/2012 Osteoarthritis 07/29/2012 Overview (12/29/2023): Bilateral knees, right AC joint Followed by Dr. Rodriguez at [facility] CKD (chronic kidney disease) stage 3, GFR 30-59 ml/min ([facility] V24, [facility] V28) 07/29/2012 Glaucoma 06/17/2012 Overview (12/29/2023): The patient follow with outside eye doctor HTN (hypertension) 06/17/2012 Osteoporosis 06/17/2012 Encounters Date Type Department Care Team Description 12/23/2024 8:15 AM EDT [facility] [address] [phone] Recurrent deep vein thrombosis (CMS/HCC V24, CMS/HCC V28) (Primary Dx); correction (current) use of anticoagulants 12/23/2024 Results Follow-Up Endocrinology - [address] [phone] Naya Sigala PA 12/16/2024 8:30 AM EDT [facility] [address] [phone] Recurrent deep vein thrombosis (CMS/HCC V24, CMS/HCC V28) (Primary Dx); intermission coordinator (current) use of anticoagulants 12/08/2024 8:45 AM EDT Office Visit Internal Medicine - [address] [phone] Anthony Andrea PA Mixed hyperlipidemia (Primary Dx); Primary hypertension; Controlled type 2 diabetes mellitus with microalbuminuria, without long-term current use of insulin ([facility]/HCC V24, [facility]/HCC V28); Mild Alzheimer's dementia without behavioral disturbance, psychotic disturbance, mood disturbance, or anxiety, unspecified timing of dementia onset ([facility]/HCC V24, CMS/HCC V28) 12/08/2024 Results Follow-Up Internal Medicine - [address] [phone] Ayesha Ortiz MA 12/08/2024 Anticoagulation - Warfarin Visit Coumadin Clinic - [address] [phone] Roseanne Barakat LPN Recurrent deep vein thrombosis (CMS/HCC V24, CMS/HCC V28) (Primary Dx); intermission coordinator (current) use of anticoagulants 11/18/2024 8:30 AM EDT Anticoagulation - Warfarin Visit [address] [phone] Recurrent deep vein thrombosis (CMS/HCC V24, CMS/HCC V28) (Primary Dx); correction (current) use of anticoagulants 11/15/2024 8:30 AM EDT Office Visit Orthopedic Surgery - [address] [phone] Hiren Michel, DPM Hammer toe of left foot (Primary Dx); Acquired hammer toe of right foot; Dermatophytosis of nail; Corns and callosities; Metatarsalgia of both feet; Diabetic mononeuropathy simplex (CMS/HCC V24, CMS/HCC V28); Pain in toe of right foot; Pain in toe of left foot; Type II diabetes mellitus with peripheral circulatory disorder (CMS/HCC V24, CMS/HCC V28) 10/20/2024 8:40 AM EDT Anticoagulation - Warfarin Visit Coumadin [address] [phone] Recurrent deep vein thrombosis (CMS/HCC V24, CMS/HCC V28) (Primary Dx); correction (current) use of anticoagulants 10/04/2024 8:30 AM EDT Anticoagulation - Warfarin Visit [address] [phone] Recurrent deep vein thrombosis (CMS/HCC V24, CMS/HCC V28) (Primary Dx); correction (current) use of anticoagulants from Last 3 Months Immunizations Immunization Administration Dates Next Due Influenza trivalent, 0.5mL [...] of the L breast ESOPHAGOGASTRODUODENOSCOPY 01/18/2013 PROCEDURE: IA EGD TRANSORAL BIOPSY SINGLE/MULTIPLE; COMMENT: erosive antral gastritis, bx to r/o H.pylori - mild rxtive gastritis,neg H.pylori COLONOSCOPY 01/18/2013 PROCEDURE: IA COLONOSCOPY STOMA DX INCLUDING COLLJ SPEC SPX; [...] doctor Diabetes mellitus with renal manifestations, controlled ([facility] V24, [facility] V28) 07/29/2012 DX:Diabetes mellitus with re nal manifestations, controlled ([facility]) Cystocele 11/12/2012 DX:Cystocele CKD (chronic kidney disease) stage 3, GFR 30-59 ml/min ([facility] V24, [facility] V28) 07/29/2012 DX:CKD (chronic kidney disea se) stage 3, GFR 30-59 ml/min ([facility]) Back pain 07/29/2012 DX:Back pain Anxiety 04/14/2013 DX:Anxiety Anemia 07/29/2012 DX:Anemia Microalbuminuria 12/13/2015 DX:Microalbumin uria Anticoagulant long-term use 03/14/2016 DX:A nticoagulant long-term use Recurrent deep vein thrombos is (DVT) ([facility] V24, [facility] V28) 03/14/2016 DX:Recurrent deep vein thro mbosis (DVT) ([facility]) Hyperlipidemia 08/27/2016 DX:Hyperlipidemi a Family [...] Alive DJD Brother 2 Daughter Father CVA, [place] Mother Other niece 40 Alive Sister 1 dementia Sister 2 MO Son 1 Son 2 Alive Social History [...] Sign Reading Time Taken Comments Blood Pressure 116/64 12/08/2024 8:52 AM EDT Pulse 68 12/08/2024 8:52 AM EDT Temperature 36.9 C (98.4 F) 06/18/2024 12:15 PM EDT Respiratory Rate 16 09/07/2024 8:41 AM EDT Oxygen Saturation 99% 03/10/2024 9:39 AM EST Inhaled Oxygen Concentration - - Weight 39.5 kg (87 lb) 12/08/2024 8:52 AM EDT Height 142.2 cm (4' 8 ) 03/18/2024 8:30 AM EST Body Mass Index 19.51 03/18/2024 8:30 AM EST Plan of Treatment Upcoming Encounters Date Type Department Care Team (Late st Contact Info) Description 12/30/2024 8:15 AM EDT Clinical Support Coumadin [address] [phone] 02/14/2025 8:45 AM EST Office Visit Orthopedic Surgery - [address] [phone] Hiren Michel, DPM [address] [place] [phone] 03/10/2025 9:00 AM EST Office Visit Internal Medicine - [facility] [address] [place] [phone] Alessandro Marin MD [address] [place] [address] Health Maintenance Due Date Last Done Comments RSV Immunization Adult Patients (1 - 1-dose 75+ series) 07/11/2014 Medicare Annual Wellness Visit 01/11/2024 01/10/2023 Depression Screening 03/03/2024 Diabetes: Annual Retina Eye Exam 12/10/2024 12/11/2023 Diabetes: Annual Foot Exam 03/18/2025 03/18/2024 Falls Risk Assessment 03/18/2025 03/18/2024 Social Influencers of Health Screening 03/18/2025 03/18/2024 Diabetes: Annual Urine Albumin-Creatinine Ratio (uACR) 03/19/2025 03/19/2024, 05/22/2023 Diabetes: Blood Sugar Control Test (HGBA1C) 06/08/2025 12/08/2024, 09/07/2024, 03/19/2024, Additional history exists Diabetes: Annual GFR (Glomerular Filtration Rate) 12/23/2025 12/23/2024, 12/08/2024, 06/11/2024, Additional history exists Hypertension/CHF/CAD Annual BMP Blood Test 12/23/2025 12/23/2024, 12/08/2024, 06/11/2024, Additional history exists Cholesterol Screening (Lipid Panel) 12/08/2029 12/08/2024, 12/17/2023, 12/17/2023 Osteoporosis Screening (Bone Density Screening) 12/24/2033 12/25/2023, 12/25/2023, 12/25/2021, Additional history exists DTaP,Tdap,and Td Vaccines (5 - Td or Tdap) 03/18/2034 03/18/2024, 04/14/2013, 07/16/2001, Additional history exists Pneumococcal Vaccine: 50+ Years Completed 03/14/2016, 04/15/2013, 04/15/2013, Additional history exists Zoster Vaccines Discontinued 01/07/2022, 03/07/2011 Influenza Vaccine Completed 11/24/2024, , 11/21/2022, Additional history exists COVID-19 Vaccine Discontinued HIB [...] Procedure Name Priority Date/Time Associated Diagnosis Comments BASIC METABOLIC PANEL Routine 12/23/2024 8:35 AM EDT Age-related osteoporosis without current pathological fracture VITAMIN D 25 HYDROXY Routine 12/23/2024 8:35 AM EDT Age-related osteoporosis without current pathological fracture POC PROTIME INR BLOOD Routine 12/23/2024 8:21 AM EDT Recurrent deep vein thrombosis (CMS/HCC V24, CMS/HCC V28) intermission coordinator (current) use of anticoagulants POC PROTIME INR BLOOD Routine 12/16/2024 8:22 AM EDT Recurrent deep vein thrombosis (CMS/HCC V24, CMS/HCC V28) correction (current) use of anticoagulants PROTHROMBIN TIME WITH INR Routine 12/08/2024 9:24 AM EDT Recurrent deep vein thrombosis (CMS/HCC V24, CMS/HCC V28) HEMOGLOBIN A1C Routine 12/08/2024 9:24 AM EDT Controlled type 2 diabetes mellitus with microalbuminuria, without long-term current use of insulin (CMS/HCC V24, CMS/HCC V28) COMPREHENSIVE METABOLIC PANEL Routine 12/08/2024 9:24 AM EDT Controlled type 2 diabetes mellitus with microalbuminuria, without long-term current use of insulin (CMS/HCC V24, CMS/HCC V28) LIPID PANEL WITH REFLEX TO DIRECT LDL Routine 12/08/2024 9:24 AM EDT Controlled type 2 diabetes mellitus with microalbuminuria, without long-term current use of insulin (CMS/HCC V24, CMS/HCC V28) POC PROTIME INR BLOOD Routine 11/18/2024 Recurrent deep vein thrombosis (CMS/HCC V24, CMS/HCC V28) intermission coordinator (current) use of anticoagulants POC PROTIME INR BLOOD Routine 10/20/2024 Recurrent deep vein thrombosis (CMS/HCC V24, CMS/HCC V28) intermission coordinator (current) use of anticoagulants POC PROTIME INR BLOOD Routine 10/04/2024 Recurrent deep vein thrombosis (CMS/HCC V24, CMS/HCC V28) correction (current) use of anticoagulants MICROALBUMIN CREATININE URINE RATIO Routine 03/19/2024 8:39 AM EST Controlled type 2 diabetes mellitus with microalbuminuria, without long-term current use of insulin ([facility] V24, [facility] V28) DXA BONE DENSITY STUDY 1+ SITS AXIAL SKEL Routine 12/25/2023 9:34 AM EDT Age-related osteoporosis without current pathological fracture from Last 3 Months or Most Recently Relevant to Health Maintenance Results * Vitamin D 25 hydroxy (12/23/2024 8:35 AM EDT) [facility] Vit D, 25-Hydroxy 31.8 30.0 - 80.0 ng/mL LAB CHEMISTRY METHOD 12/23/2024 12:52 PM EDT [facility] Blood Venous blood specimen / Unknown Venipuncture / Unknown 12/23/2024 8:35 AM EDT 12/23/2024 8:35 AM EDT us Naya TEIXEIRA LAB BLOOD ORDERABLES Final Result [facility] [address] [place] [address], [place] [phone] * (ABNORMAL) Basic metabolic panel (12/23/2024 8:35 AM EDT) [facility] Sodium 140 133 - 145 mmol/L LAB CHEMISTRY METHOD 12/23/2024 11:48 AM EDT [facility] Potassium 5.2 3.5 - 5.5 mmol/L LAB CHEMISTRY METHOD 12/23/2024 11:48 AM EDT [facility] Chloride 105 96 - 110 mmol/L LAB CHEMISTRY METHOD 12/23/2024 11:48 AM EDT [facility] CO2 30 21 - 32 mmol/L LAB CHEMISTRY METHOD 12/23/2024 11:48 AM EDT [facility] Anion Gap 5 3 - 11 LAB CHEMISTRY METHOD 12/23/2024 11:48 AM EDT [facility] Glucose 102(H) 70 - 100 mg/dL LAB CHEMISTRY METHOD 12/23/2024 11:48 AM [facility] BUN 16 5 - 25 mg/dL LAB CHEMISTRY METHOD 12/23/2024 11:48 AM EDT [facility] Creatinine 0.87 0.50 - 1.10 mg/dL LAB CHEMISTRY METHOD 12/23/2024 11:48 AM EDT [facility] eGFR 65 >=60 mL/min/1. 73m2 LAB CHEMISTRY METHOD 12/23/2024 11:48 AM EDT [facility] Comment:Calculation based on the Chronic Kidney Disease Epidemiology Collaboration (CKD-EPI) equation refit without adjustment for race. BUN/Creatinine Ratio 18.4 LAB CHEMISTRY METHOD 12/23/2024 11:48 AM [facility] Calcium 9.2 8.5 - 10.5 mg/dL LAB CHEMISTRY METHOD 12/23/2024 11:48 AM T [facility] Comment:Results verified by repeat testing Blood Venous blood specimen / Unknown Venipuncture / Unknown 12/23/2024 8:35 AM EDT 12/23/2024 8:35 AM EDT us Naya TEIXEIRA LAB BLOOD ORDERABLES Final Result [facility] [address] [place] [address], [place] [phone] * POC Protime INR Blood (12/23/2024 8:21 AM EDT) Only the most recent of5 resultswithin the time period is included. Lot Number INR POC 1.9 Prothrombin Time POC Exp Date Blood 12/23/2024 8:21 AM EDT us Alessandro Marin MD POINT OF CARE TEST ENTER/EDIT O RDERABLES Final Result * Lipid panel with reflex to direct LDL (12/08/2024 9:24 AM EDT) Cholesterol 169 0 - 200 mg/dL LAB CHEMISTRY METHOD 12/08/2024 11:57 AM EDT [facility] Triglycerides 83 0 - 150 mg/dL LAB CHEMISTRY METHOD 12/08/2024 11:57 AM EDT [facility] HDL 70 >=40 mg/dL LAB CHEMISTRY METHOD 12/08[facility]24 [facility] LDL Calculated 82 0 - 100 mg/dL LAB CHEMISTRY METHOD 12/08/2024 11:57 AM [facility] Comment:Estimated LDL Calcul ated using equation: Total cholesterol - HDL cholesterol - (Triglycerides/5) VLDL Cholesterol Jose 16.6 mg/dL LAB CHEMISTRY METHOD 12/08/2024 11:57 AM EDT [facility] Non HDL Chol. (LDL+VLDL) 99 <145 mg/dL LAB CHEMISTRY METHOD 12/08/2024 11:57 AM [facility] Chol/HDL Ratio 2.4 0.0 - 4.4 LAB CHEMISTRY METHOD 12/08/2024 11:57 AM [facility] Blood Venous blood specimen / Unknown Venipuncture / Unknown 12/08/2024 9:24 AM EDT 12/08/2024 9:24 AM EDT us Anthony TEIXEIRA LAB BLOOD ORDERABLES Fi nal Result [facility] [address] [place] [address], * (ABNORMAL) Prothrombin time with INR (12/08/2024 9:24 AM EDT) Protime 32.6(H) 10.6 - 13.9 sec LAB COAGULATION METHOD 12/08/2024 11:15 AM EDT [facility] INR 2.6 LAB COAGULATION METHOD 12/08/2024 11:15 AM EDT [facility] Blood Venous blood specimen / Unknown Venipuncture / Unknown 12/08/2024 9:24 AM EDT 12/08/2024 9:24 AM EDT Alessandro Marin MD LAB BLOOD ORDERABLES Final Resu lt Performing Organization Address [facility]/ZIP Co de Phone Number [facility] [address] [place] [address], [place] [phone] * Hemoglobin A1c (12/08/2024 9:24 AM EDT) Pathologist [facility] Hemoglobin A1C 6.3 <6.5 % LAB CHEMISTRY METHOD 12/08/2024 12:25 PM EDT [facility] Mean Bld Glu Estim. 134 mg/dL LAB CHEMISTRY METHOD 12/08/2024 12:25 PM EDT [facility] Blood Venous blood specimen / Unknown Venipuncture / Unknown 12/08/2024 9:24 AM EDT 12/08/2024 9:24 AM EDT Anthony TEIXEIRA LAB BLOOD ORDERABLES Fi nal Result Performing Organization Address City/[facility]/ZIP Co de Phone Number [facility] [address] [place] [address], [place] [phone] * (ABNORMAL) Comprehensive metabolic panel (12/08/2024 9:24 AM EDT) Pathologist [facility] Sodium 140 133 - 145 mmol/L LAB CHEMISTRY METHOD 12/08/2024 11:57 AM EDT [facility] Potassium 5.3 3.5 - 5.5 mmol/L LAB CHEMISTRY METHOD 12/08/2024 11:57 AM EDT [facility] Chloride 104 96 - 110 mmol/L LAB CHEMISTRY METHOD 12/08/2024 11:57 AM [facility] CO2 30 21 - 32 mmol/L LAB CHEMISTRY METHOD 12/08/2024 11:57 AM [facility] Anion Gap 6 3 - 11 LAB CHEMISTRY METHOD 12/08/2024 11:57 AM [facility] Glucose 110(H) 70 - 100 mg/dL LAB CHEMISTRY METHOD 12/08/2024 11:57 AM [facility] BUN 18 5 - 25 mg/dL LAB CHEMISTRY METHOD 12/08/2024 11:57 AM [facility] Creatinine 0.78 0.50 - 1.10 mg/dL LAB CHEMISTRY METHOD 12/08/2024 11:57 AM [facility] eGFR 75 >=60 mL/min/1. 73m2 LAB CHEMISTRY METHOD 12/08/2024 11:57 AM [facility] Comment:Calculation based on the Chronic Kidney Disease Epidemiology Collaboration (CKD-EPI) equation refit without adjustment for race. BUN/Creatinine Ratio 23.1 LAB CHEMISTRY METHOD 12/08/2024 11:57 AM [facility] Calcium 10.0 8.5 - 10.5 mg/dL LAB CHEMISTRY METHOD 12/08/2024 11:57 AM [facility] AST (SGOT) 25 10 - 42 unit/L LAB CHEMISTRY METHOD 12/08/2024 11:57 AM [facility] ALT (SGPT) 33 10 - 60 unit/L LAB CHEMISTRY METHOD 12/08/2024 11:57 AM [facility] Alkaline Phosphatase 51 42 - 121 unit/L LAB CHEMISTRY METHOD 12/08/2024 11:57 AM [facility] Total Protein 7.3 6.0 - 8.0 g/dL LAB CHEMISTRY METHOD 12/08/2024 11:57 AM [facility] Albumin 3.9 3.2 - 5.0 g/dL LAB CHEMISTRY METHOD 12/08/2024 11:57 AM EDT [facility] Total Bilirubin 0.5 0.0 - 1.4 mg/dL LAB CHEMISTRY METHOD 12/08/2024 11:57 AM EDT [facility] Blood Venous blood specimen / Unknown Venipuncture / Unknown 12/08/2024 9:24 AM EDT 12/08/2024 9:24 AM EDT us Anthony TEIXEIRA LAB BLOOD ORDERABLES Fi nal Result [facility] [address] [place] [address], [place] [phone] * (ABNORMAL) Microalbumin creatinine urine ratio (03/19/2024 8:39 AM EST) Creatinine, Urine 38.0 mg/dL LAB CHEMISTRY METHOD 03/19/2024 11:48 AM EST [facility] Microalb, Ur 75.2(H) 0.0 - 29.0 mg/L LAB CHEMISTRY METHOD 03/19/2024 11:48 AM EST [facility] Microalb/Crea t Ratio 198(H) <30 mg/g creat LAB CHEMISTRY METHOD 03/19/2024 11:48 AM EST [facility] Urine Urine specimen obtained by clean catch procedure / Unknown Non-blood Collection / Unknown 03/19/2024 8:39 AM EST 03/19/2024 8:39 AM EST us Alessandro Marin MD LAB URINE ORDERABLES Final Resu lt [facility] [address] [place] [address], [place] [phone] * DXA BONE DENSITY STUDY 1+ SITS AXIAL SKEL (12/25/2023 9:34 AM EDT) Anatomical Region Laterality Modality Bone Densitometr y 08/27/2023 9:43 AM EDT Narrative 12/30/2023 4:06 PM EDT BONE DENSITY Lumbar Spine T-score is -3.7 [...] should be classified as having osteoporosis. The [facility] Department of Internal Medicine recommends using [...] Harrell should beclassified as having osteoporosis. The [facility] Department of Internal Medicine recommendsusing National [...] or over-estimation of fracture risk by FRAX. Naya TEIXEIRA IM DXA PROCEDURES Final Re sult from Last 3 Months or Most Recently Relevant to Health Maintenance Insurance [facility] MEDICARE Member Subscriber Plan / Payer (Ef fective 2013-Present) Name:Livia Harrell Relation to Subscriber:Self Name:Livia Harrell Payer ID:[id number] Group ID:[id number] Type:Not on file Address: [facility] [address] [address] Care Teams Product Lister Relationship Specialty Start Date End Date Alessandro Marin MD [address] [place] [address] PCP - General Internal Medicine 01/09/24
== END 2024-12-28 10:28 | disposition home or self-care (01) ==
LOC: HO.HSMS 09:19
PROVIDERS: PCP Internal Medicine; Visit Provider Nurse Practitioner Family
DX: R41.89 Other symptoms and signs involving cognitive functions and awareness (principal); Z55.0 Illiteracy and low-level literacy; R25.1 Tremor, unspecified; G47.9 Sleep disorder, unspecified
CPT/HCPCS: 99214

== ENCOUNTER → 2024-12-28 09:18 | Outpatient (BNVA) | payer OTHER, SELFPAY | PROVIDERS: PCP Internal Medicine; Visit Provider Nurse Practitioner Family | DX: F09 Unspecified mental disorder due to known physiological condition (principal); G47.9 Sleep disorder, unspecified; R25.1 Tremor, unspecified; Z55.0 Illiteracy and low-level literacy | CPT/HCPCS: 99212 ==